=== PATIENT | male | born 1960 | race African-American/Black ===

== ENCOUNTER 2017-09-27 11:23 | Inpatient (IN) | payer MEDICARE ==
[2017-09-27 12:10] LABS: #Basophils 0.1 thou/uL (0.0-0.2); #Eosinphils 0.1 thou/uL (0.0-0.7); #Lymphocytes 2.7 thou/uL (1.20-3.40); #Monocytes 0.4 thou/uL (0.11-0.59); #Neutrophils 2.4 thou/uL (1.40-6.50); %Basophils 1.5 % (0.0-1.0); %Eosinophils 2.2 % (0.0-10.0); %Lymphocytes 47.7 % (21.0-51.0); %Monocytes 7.7 % (0.0-10.0); Hematocrit 54.6 % (42.0-52.0); Mean Platelet Volume 7.8 fL (7.4-10.4); Red Blood Cell (RBC) Count 5.42 mill/uL (4.70-6.10); White Blood Cell (WBC) Count 5.8 thou/uL (4.8-10.8)
[2017-09-27 12:27] LABS: ALT (SGPT) 44 U/L (8-55); AST (SGOT) 32 U/L (5-34); Alkaline Phosphatase 62 U/L (40-150); Anion Gap 15 mmol/L (10-20); BUN (Urea Nitrogen) 10 mg/dL (8.4-25.7); Bilirubin, Total 0.7 mg/dL (0.2-1.2); Calc. Creatinine Clearance 0 mL/min (70-130); Carbon Dioxide 20 mmol/L (22-29); Chloride 102 mmol/L (98-107); Estimated GFR-MDRD 81; Globulin 4.5 g/dL (2.4-3.5); Protein, Total 8.8 g/dL (6.0-8.3)
[2017-09-27 12:47] LABS: Troponin I Less than 0.010 ng/mL (< 0.028)
[2017-09-27 12:50] LABS: PTT 28.8 SEC (22.9-36.1)
--- NOTE | 2017-09-27 13:01 | CT ---
CT OF THE BRAIN WITHOUT CONTRAST: Indication: Blurred vision and altered mental status. FINDINGS: There are hypodensities involving the parietal lobes bilaterally as well as the frontal lobes bilater ally. There is one large hypodense lesion involving the left frontal lobe with areas of central incre ased density which may reflect areas of petechial hemorrhage versus calcifications. No midline shift is noted. Septum pellucidum and third ventricle are midline. There are calcifications involving the i ntracranial carotids. IMPRESSION: Hypodensities involving bilateral frontal lobes and parietal regions may reflect watershed type infar cts. There is a mass like quality to the lesion within the left frontal lobe. Metastatic disease is n ot excluded. Recommend follow up MRI of the brain with and without contrast. Code T POS: [facility]
--- NOTE | 2017-09-27 13:33 | RAD ---
SINGLE VIEW OF THE CHEST: Comparison: None. History: Altered mental status, high blood glucose. FINDINGS: Single view of the chest shows a normal sized cardiomediastinal silhouette. There is no evidence of c onsolidation, mass, or pleural effusion. Degenerative changes are seen in the spine. IMPRESSION: No evidence of acute cardiopulmonary disease. POS: [facility]
--- NOTE | 2017-09-27 16:05 | HP ---
PRIMARY CARE PHYSICIAN: Manny Elizabeth D.O. REASON FOR ADMISSION: Acute stroke. HISTORY OF PRESENT ILLNESS: A 57-year-old -[place] male with a history of diabetes type 2, h ypertension, tobacco abuse disorder who presented to the emergency room with complaint of right arm w eakness and blurred vision. The patient reports that 2 days ago when he was returning from [employer] tore, he was not able to use his right hand and right upper extremity. He was feeling weak. He is l eft handed and he can use both right and left hand, but this time he was having a hard time opening c ar door with right hand. He was also feeling blurred vision. On that day, he was feeling heaviness on his right lower extremity, but he was able to walk without any fall or wobbly. Subsequently, he w as able to hold a cup of coffee with the right hand, but he was not able to do that as well. Somehow , he opened the car door with his left hand and he drove back to his home and by that time, his sympt oms completely resolved, but blurred vision was continued. The patient reports that even after that he was intermittently experiencing weakness on his right upper extremity, he was not able to use righ t upper extremity as he used to. He did not have any lower extremity problem. He did not have any s ensory symptoms. He did not have any facial asymmetry, speech problem, headache, palpitations, chest pain and dizziness, but he was having blurred vision. Patient is taking aspirin daily and he just quit smoking 2 days ago when he noticed these symptoms. He also has a history of alcohol abuse. Today in the emergency room, patient had CT brain and CT brain showed hypodensity involving bilateral frontal lobe and parietal region suspected for watershed type of infarct and there was also mass-lik e quality due do to that lesion within the left frontal lobe hence suspicious for metastatic disease. This patient reports that he had colon screening test with guaiac, which was normal per patient, bu t he never had any colonoscopy or any age appropriate cancer screening. REVIEW OF SYSTEMS: The following complete review of systems was negative, unless otherwise mentioned in the HPI or below: Constitutional: Weight loss or gain, ability to conduct usual activities. Skin: Rash, itching. Eyes: Double vision, pain. ENT/Mouth: Nose bleeding, neck stiffness, pain, tenderness. Cardiovascular: Palpitations, dyspnea on exertion, orthopnea. Respiratory: Shortness of breath, wheezing, cough, hemoptysis, fever or night sweats. Gastrointestinal: Poor appetite, abdominal pain, heartburn, nausea, vomiting, constipation, or diarr hea. Genitourinary: Urgency, frequency, dysuria, nocturia. Musculoskeletal: Pain, swelling. Neurologic/Psychiatric: Anxiety, depression. Allergy/Immunologic: Skin rash, bleeding tendency. Please see my HPI for pertinent positives and negatives. All other review of systems reviewed and ne gative except as mentioned in the HPI. ALLERGIES: No known drug allergies. CURRENT HOME MEDICATIONS: Lipitor 40 mg p.o. at bedtime, lisinopril 10 mg p.o. daily, glipizide with metformin 2.5/250 one tablet twice daily. PAST MEDICAL HISTORY: Diabetes type 2 on oral hypoglycemic agent, hypertension, chronic low back ya n, tobacco abuse disorder, alcohol abuse disorder, history of marijuana abuse. PAST SURGICAL HISTORY: Right leg fracture required open reduction internal fixation, history of live r biopsy. PAST PSYCHIATRIC HISTORY: Reviewed and negative. FAMILY HISTORY: Diabetes to his 2 sister. No strong family history of coronary artery disease, stro ke or cancer. SOCIAL HISTORY: Patient is currently on disability. He smokes about 1 pack per day, but he quit [employer] 2 days ago. He drinks almost 10 beers on a daily basis. He has a remote history of marijuana a buse, but he quit marijuana. EMERGENCY ROOM COURSE: Patient is given aspirin 324 mg. PHYSICAL EXAMINATION: VITAL SIGNS: On arrival, blood pressure 144/99, pulse 93, respiratory rate 16, temperature 97.8, sat uration 97% on room air, weight 88.4 kilograms. GENERAL: Patient is currently alert, oriented, no acute distress. HEAD: Normocephalic, atraumatic. EYES: Pupils round, reactive to light. Extraocular muscle intact. No nystagmus. Visual inspection is completely normal. ENT: Oropharynx within normal limits. Moist mucous membranes. No oral lesions. No pharyngeal eryt christian, no exudate. NECK: Supple, no JVD, no thyromegaly, no carotid bruit, no jugular venous distention. LUNGS: Clear to auscultation without any rhonchi or rales. CARDIAC: S1, S2 regular. No murmur, no gallop, no rub. ABDOMEN: Soft, bowel sounds present, nontender, nondistended. No organomegaly, no mass, no suprapub ic tenderness. BACK: Unremarkable, no CVA tenderness. EXTREMITIES: Upper extremity passive movements of all joints are normal. Lower extremity passive mo vements of joints are vision. No edema. Good peripheral pulsation. SKIN: No skin rash. HEMATOLOGICAL: No lymphadenopathy. NEUROLOGIC: Patient is alert and oriented x3. Cranial nerves II-XII intact. Motor 5/5 in all four limbs. Sensation bilaterally symmetrical. No cerebellar sign. Speech normal. Planter bilateral fl exor. Reflexes symmetrical. SIGNIFICANT LABS: EKG based on my review reveals normal sinus rhythm. CT brain based on my review, hypodensity in the bilateral frontal lobe and parietal lobe consistent w ith watershed type of infarct. There is mass like changes in left frontal lobe. CBC: WBC 5.8, hemoglobin 18.3, MCV 101.0, platelets 153. INR 1.0. BMP: Sodium 133, potassium 4.3, chloride 102, carbon dioxide 20, BUN 10, creatinine 1.13, glucose 81, calcium 10.0. LFT: AST 32, ALT 44, alkaline phosphatase 62, albumin 4.3. CK 131, CK-MB 1.3, troponin I less than 0.010. Chest x-ray based on my review, no acute cardiopulmonary process. ASSESSMENT AND PLAN/IMPRESSION: 1. Stroke-like symptoms. This patient has right upper extremity weakness, currently resolved. His CT brain is showing worrisome finding. He has hypodensities in bilateral frontal lobe and right vincent etal lobe as well as mass-like quality in left frontal lobe. It is unclear whether this is only wate rshed type of infarct embolism phenomena versus metastatic disease. This patient never had any age a ppropriate cancer screening testing done. At this point for further evaluation, we will do MRI of br ain with contrast. We will also do carotid ultrasound, echocardiography for further evaluation for s troke. We will check lipid profile, hemoglobin A1c, RPR, homocysteine as a part of stroke workup. W e will also check stool for guaiac to rule out any occult bleeding. We will check PSA for age approp riate cancer screening to rule out any metastasis. We will also consult Neurology for their expert o yonathan, we will do neuro check. 2. Diabetes type 2. We will continue glipizide and metformin 2.5/250 one tablet twice daily. Will check hemoglobin A1c tomorrow, diabetic diet will be given insulin as per sliding scale per protocol. 3. Hypertension. We will continue lisinopril 10 mg p.o. daily. 4. Dyslipidemia. We will check lipid profile tomorrow and continue Lipitor 40 mg p.o. at bedtime. 5. Tobacco abuse disorder. Smoking cessation counseling given. We will provide nicotine patch if n eeded. 6. Microcytic anemia. We will provide folic acid, vitamin B12 and thiamine while in hospital. We w ill watch for any alcohol withdrawal. 7. Alcohol abuse. Patient is given counseling to avoid alcohol abuse. 8. Deep venous thrombosis prophylaxis. Lovenox 40 mg subcu daily. 9. Gastrointestinal prophylaxis. Pepcid 20 mg p.o. b.i.d. 10. Code status: The patient is FULL CODE. Patient does not have any surrogate decision maker. Disposition plan based on clinical course. We are expecting patient's stay in hospital more than 2 m idnights. Plan of care discussed with the patient and family member at bedside in the emergency room .
[2017-09-27] MEDS ORDERED: Milk Of Magnesia 30 ML UDCUP PO PRN (17:40)
[2017-09-27] MEDS ORDERED: Diabetic Tussin 200 MG/10 ML UDCUP PO PRN (17:40)
[2017-09-27] MEDS ORDERED: Ondansetron ODT 4 MG TAB PO PRN (17:40)
[2017-09-27] MEDS ORDERED: Senokot 8.6 MG TAB PO PRN (17:40)
[2017-09-27] MEDS ORDERED: Nitroglycerin 0.4 MG TAB (25 Tab Bottle) SL PRN (17:40)
[2017-09-27] MEDS ORDERED: Artificial Tears 18 DROP/0.9 ML EA EYE PRN (17:40)
[2017-09-27] MEDS ORDERED: Lorazepam 1 MG TAB PO PRN (17:40)
[2017-09-27] MEDS ORDERED: Ondansetron HCl/PF 4 MG/2 ML Vial IVP PRN (17:40)
[2017-09-27] MEDS ORDERED: Acetaminophen 325 MG TAB PO PRN (17:40)
[2017-09-27] MEDS ORDERED: Sodium Chloride 0.65% Nasal 44 ML BOT EA NARE PRN (17:40)
[2017-09-27] MEDS ORDERED: Mag-Al 1200 mg/1200 mg/30 ML UDCUP PO PRN (17:40)
[2017-09-27] MEDS ORDERED: Loratadine 10 MG TAB PO PRN (17:40)
[2017-09-27] MEDS ORDERED: hydrALAZINE 20 MG/ML VIAL SLOW IVP PRN (17:40)
[2017-09-27] MEDS ORDERED: Dextrose 50% Abboject 50 ML SYRINGE SLOW IVP PRN (17:40)
[2017-09-27] MEDS ORDERED: Dextrose 5% in Water 1,000 ML IV PRN (17:40)
[2017-09-27] MEDS ORDERED: Loperamide HCl 2 MG CAP PO PRN (17:40)
[2017-09-27] MEDS ORDERED: HumaLOG 300 UNITS/3 ML VIAL SC PRN ×2 (17:40)
[2017-09-27] MEDS ORDERED: Chloraseptic Spray 180 ml Bottle PO PRN (17:40)
[2017-09-27] MEDS ORDERED: Zolpidem Tartrate 5 MG TAB PO PRN (17:40)
[2017-09-27] MEDS ORDERED: Eucerin (Mineral Oil/Petrolatum,White) 30 gm Jar TOP PRN (17:40)
[2017-09-27] MEDS ORDERED: HYDROcodone/Acetaminophen 5/325 mg Tablet PO PRN (17:40)
[2017-09-27] MEDS ORDERED: metFORMIN 500 MG TAB PO SCH (18:45)
[2017-09-27] MEDS ORDERED: glipiZIDE 5 MG TAB PO SCH (19:00)
[2017-09-27 19:48] VITALS: BMI 23.8
[2017-09-27] MEDS: Atorvastatin Calcium 40 MG TAB PO SCH (20:45)
[2017-09-27] MEDS: Famotidine 20 MG TAB PO SCH (20:46)
[2017-09-28 05:26] LABS: Hemoglobin A1c 5.6 % (4.0-6.0)
[2017-09-28 05:32] LABS: Anion Gap 12 mmol/L (10-20); BUN (Urea Nitrogen) 10 mg/dL (8.4-25.7); Calc. Creatinine Clearance 82 mL/min (70-130); Calcium 10.3 mg/dL (7.8-10.44); Carbon Dioxide 24 mmol/L (22-29); Chloride 105 mmol/L (98-107); Cholesterol 172 mg/dl (< 200 Desired); Estimated GFR-MDRD 79; LDL Cholesterol, Calculated 120 mg/dL
[2017-09-28 06:03] LABS: Hematocrit 52.5 % (42.0-52.0); Mean Platelet Volume 7.5 fL (7.4-10.4); Neutrophil 38 % (42-75); Red Blood Cell (RBC) Count 5.23 mill/uL (4.70-6.10); White Blood Cell (WBC) Count 4.4 thou/uL (4.8-10.8)
[2017-09-28] MEDS ORDERED: FLU VACC QS2017-18 36 mo. & older 0.5 ML SYRINGE IM ONE (09:00)
[2017-09-28] MEDS: Enoxaparin Sodium 40 MG/0.4 ML SYRINGE SC SCH (09:11)
[2017-09-28] MEDS: Aspirin 325 mg Enteric Coated Tablet PO SCH (09:12)
[2017-09-28] MEDS: Multivitamin W/ Minerals 1 TAB PO SCH (09:12)
[2017-09-28] MEDS: Lisinopril 10 MG TAB PO SCH (09:12)
[2017-09-28] MEDS: Cyanocobalamin (Vitamin B-12) 1,000 MCG TAB PO SCH (09:12)
[2017-09-28] MEDS: Folic Acid 1 MG TAB PO SCH (09:12)
[2017-09-28] MEDS: Famotidine 20 MG TAB PO SCH ×2 (09:14→20:54)
[2017-09-28] MEDS: glipiZIDE 5 MG TAB PO SCH ×2 (09:14→18:18)
[2017-09-28] MEDS: metFORMIN 500 MG TAB PO SCH ×2 (09:17→17:45)
[2017-09-28 09:44] LABS: Bilirubin Small (Negative); Blood, Urine Negative (Negative); Glucose, Urine (Dipstick) Negative (Negative); Ketone, Urine Trace mg/dL (Negative); Nitrite Negative (Negative); Protein, Urine (Dipstick) Negative (Neg-Trace)
[2017-09-28 09:50] LABS: Bacteria/HPF None Seen HPF (None Seen); Hyaline Casts/LPF 0-3 HYALINE CAST LPF (0-3 Hyaline); RBC/HPF 0-3 HPF (0-3); Squamous Epithelial None Seen HPF (0-3); WBC/HPF None Seen HPF (0-3)
--- NOTE | 2017-09-28 10:04 | PDOC.PN ---
- Subjective Encounter Start Date: 09/28/17 Encounter Start Time: 07:10 -: old records requested/rev Patient seen and examined. No new complaints. No overnight events - Objective Resuscitation Status: Resuscitation Status FULL:Full Resuscitation MAR Reviewed: Yes Vital Signs & Weight: Vital Signs (12 hours) Temp Pulse Resp BP BP BP Pulse Ox 09/28/17 09:12 138/92 H 09/28/17 08:00 99 F 77 18 138/92 H 99 09/28/17 03:19 97.7 F 68 18 144/90 H 98 09/27/17 23:21 98.4 F 80 18 149/101 H 98 09/27/17 22:06 97 Weight Weight 181 lb 12.8 oz Result Diagrams: 09/28/17 05:07 09/28/17 05:07 Additional Labs: Accuchecks 09/28/17 09/27/17 05:43 19:41 POC Glucose 117 H 97 EKG Reviewed by me: Yes (nsr) Phys Exam - Physical Examination Constitutional: NAD HEENT: PERRLA, moist MMs, sclera anicteric Neck: no JVD, supple Respiratory: no wheezing, no rales, no rhonchi Cardiovascular: RRR, no significant murmur, no rub Gastrointestinal: soft, non-tender, no distention, positive bowel sounds Musculoskeletal: no edema, pulses present Neurological: moves all 4 limbs Lymphatic: no nodes Psychiatric: normal affect, A&O x 3 Skin: no rash, normal turgor Dx/Plan (1) CVA (cerebral vascular accident) Code(s): I63.9 - CEREBRAL INFARCTION, UNSPECIFIED Status: Acute (2) Alcohol abuse Code(s): F10.10 - ALCOHOL ABUSE, UNCOMPLICATED Status: Chronic (3) Diabetes type 2, controlled Code(s): E11.9 - TYPE 2 DIABETES MELLITUS WITHOUT COMPLICATIONS Status: Chronic (4) Dyslipidemia Code(s): E78.5 - HYPERLIPIDEMIA, UNSPECIFIED Status: Chronic (5) Hypertension Code(s): I10 - ESSENTIAL (PRIMARY) HYPERTENSION Status: Chronic (6) Macrocytic anemia Code(s): D53.9 - NUTRITIONAL ANEMIA, UNSPECIFIED Status: Chronic (7) Tobacco abuse Code(s): Z72.0 - TOBACCO USE Status: Chronic - Plan cont current plan of care * all investigation carotid, US, echo, MRI pending * neurology consult pending * medication reviewed as below * symptomatic treatment * concern is ? mlg with mets. Review of Systems - Review of Systems ENT: negative: Ear Pain, Ear Discharge, Nose Pain, Nose Discharge, Nose Congestion, Mouth Pain, Mouth Swelling, Throat Pain, Throat Swelling, Other Respiratory: negative: Cough, Dry, Shortness of Breath, Hemoptysis, SOB with Excertion, Pleuritic Pain, Sputum, Wheezing Cardiovascular: negative: Chest Pain, Palpitations, Orthopnea, Paroxysmal Noc. Dyspnea, Edema, Light Headedness, Other Gastrointestinal: negative: Nausea, Vomiting, Abdominal Pain, Diarrhea, Constipation, Melena, Hematochezia, Other Genitourinary: negative: Dysuria, Frequency, Incontinence, Hematuria, Retention , Other Musculoskeletal: negative: Neck Pain, Shoulder Pain, Arm Pain, Back Pain, Hand Pain, Leg Pain, Foot Pain, Other Skin: negative: Rash, Lesions, [place], Bruising, Other - Medications/Allergies Allergies/Adverse Reactions: Allergies Allergy/AdvReac Type Severity Reaction Status Date / Time No Known Drug Allergies Allergy Verified 09/27/17 19:45 Medications: Current Medications Acetaminophen (Tylenol) 650 mg PO Q4H PRN PRN Reason: Headache/Fever or Pain Hydrocodone Bitart/Acetaminophen ([place] 5/325) 1 tab PO Q4H PRN PRN Reason: Moderate Pain (4-6) Al Hydroxide/Mg Hydroxide (Maalox) 30 ml PO Q6H PRN PRN Reason: Heartburn or Indigestion Artificial Tears (Tears Naturale) 0 drop EA EYE PRN PRN PRN Reason: Dry Eyes Aspirin (Ecotrin) 325 mg PO DAILY [facility] Last Admin: 09/28/17 09:12 Dose: 325 mg Atorvastatin Calcium (Lipitor) 40 mg PO HS [facility] Last Admin: 09/27/17 20:45 Dose: 40 mg Cyanocobalamin (Vitamin B-12) 1,000 mcg PO DAILY [facility] Last Admin: 09/28/17 09:12 Dose: 1,000 mcg Dextrose/Water (Dextrose 50%) 25 gm SLOW IVP PRN PRN PRN Reason: Hypoglycemia Enoxaparin Sodium (Lovenox) 40 mg SC 0900 [facility] Last Admin: 09/28/17 09:11 Dose: 40 mg Famotidine (Pepcid) 20 mg PO BID [facility] Last Admin: 09/28/17 09:14 Dose: 20 mg Folic Acid (Folvite) 1 mg PO DAILY [facility] Last Admin: 09/28/17 09:12 Dose: 1 mg Glipizide (Glucotrol) 2.5 mg PO BID-AC [facility] Last Admin: 09/28/17 09:14 Dose: 2.5 mg Glucagon (Glucagon) 1 mg IM PRN PRN PRN Reason: Hypoglycemia Guaifenesin (Robitussin Sf) 200 mg PO Q4H PRN PRN Reason: Cough Hydralazine HCl (Apresoline) 10 mg SLOW IVP Q4H PRN PRN Reason: Systolic BP > 180 Dextrose/Water (D5w) 1,000 mls @ 0 mls/hr IV .Q0M PRN; As Directed PRN Reason: Hypoglycemia Insulin Human Lispro (Humalog) 0 units SC .MODERATE SLIDING SC PRN PRN Reason: Moderate Correctional Scale Insulin Human Lispro (Humalog) 0 units SC .BEDTIME SLIDING SC PRN PRN Reason: Bedtime Correctional Scale Iron/Minerals/Multivitamins (Theragran M) 1 tab PO DAILY [facility] Last Admin: 09/28/17 09:12 Dose: 1 tab Lisinopril (Zestril) 10 mg PO DAILY [facility] Last Admin: 09/28/17 09:12 Dose: 10 mg Loperamide HCl (Imodium) 2 mg PO PRN PRN PRN Reason: Diarrhea/Loose Stools Loratadine (Claritin) 10 mg PO DAILYPRN PRN PRN Reason: Sinus Symptoms Lorazepam (Ativan) 1 mg PO Q4H PRN PRN Reason: Anxiety/Agitation Magnesium Hydroxide (Milk Of Magnesium) 30 ml PO DAILYPRN PRN PRN Reason: Constipation Metformin HCl (Glucophage) 250 mg PO BID-[facility] Last Admin: 09/28/17 09:17 Dose: 250 mg Mineral Oil/White Petrolatum (Eucerin Cream) 0 gm TOP BIDPRN PRN PRN Reason: Dry Skin Nitroglycerin (Nitrostat) 0.4 mg SL Q5MIN PRN PRN Reason: Chest Pain Ondansetron HCl (Zofran Odt) 4 mg PO Q6H PRN PRN Reason: Nausea/Vomiting Ondansetron HCl (Zofran) 4 mg IVP Q6H PRN PRN Reason: Nausea/Vomiting Phenol (Chloraseptic [place] 180 Ml Bot) 0 ml PO PRN PRN PRN Reason: Sore Throat Senna (Senokot) 2 tab PO HSPRN PRN PRN Reason: Constipation Sodium Chloride ([place] Nasal [place] 0.65%) 0 ml EA NARE QIDPRN PRN PRN Reason: Nasal Congestion Sodium Chloride (Flush - Normal Saline) 10 ml IVF Q12HR [facility] Last Admin: 09/28/17 09:14 Dose: 10 ml Sodium Chloride (Flush - Normal Saline) 10 ml IVF PRN PRN PRN Reason: Saline Flush Thiamine HCl (Thiamine) 100 mg PO DAILY [facility] Last Admin: 09/28/17 09:12 Dose: 100 mg Zolpidem Tartrate (Ambien) 5 mg PO HSPRN PRN PRN Reason: Insomnia
[2017-09-28 10:05] LABS: Amphetamine Not Detected (NotDetected); Methadone Not Detected (NotDetected); Methamphetamine Not Detected (NotDetected)
--- NOTE | 2017-09-28 11:37 | ULT ---
CAROTID DOPPLER: HISTORY: CVA. TECHNIQUE: Ultrasound Doppler study is performed on the extracranial carotid arteries with color Doppler, spectr al analysis, and velocity recordings obtained. FINDINGS: Ultrasound images show diffuse echogenic plaque in both bulb and proximal ICAs. No increased velocit ies are recorded in either internal carotid artery. However, the right ICA is not well seen in its m id and distal portions. Flow is not demonstrated in this region. There is diffuse intimal thickenin g also noted. IMPRESSION: Prominent echogenic plaque throughout both systems. The mid right internal carotid artery is inadequ ately evaluated and flow cannot be confirmed. Recommend further evaluation with CT angio of neck. POS: [facility]
--- NOTE | 2017-09-28 13:00 | MRI ---
MRI BRAIN WITH AND WITHOUT CONTRAST: CLINICAL HISTORY: Altered mental status. TIA. FINDINGS: There is multifocal restricted diffusion involving the anterior centrum semiovale bilaterally, as wel l as the left temporoparietal occipital lobe. These findings are in a watershed distribution. There is no intracranial hemorrhage. No mass effect or midline shift. The ventricular system is within n ormal limits in size. Post contrast imaging reveals stippled areas of intraaxial enhancement localizing to sites of recent infarction described above. Skull base flow voids are patent. There is minimal mucosal thickening o f the paranasal sinuses. Trace left mastoid fluid is present. IMPRESSION: Areas of recent infarction involving the watershed distributions bilaterally with associated patholog ic enhancement. POS: [facility]
[2017-09-28] MEDS ORDERED: ISOVUE-370 76%-LOCM 1 ML ONE (14:05)
--- NOTE | 2017-09-28 19:57 | CON ---
DATE OF CONSULTATION: 09/28/2017 CONSULTING PHYSICIAN: Hospitalist service. IMPRESSION: 1. Ischemic stroke resulting in some mild right-sided weakness. 2. Hypertension. 3. Potential carotid stenosis. PLAN: 1. CTA of the carotids. 2. Restart aspirin. 3. Continue his statin. 4. The patient will be discharged home tomorrow if his carotid exam is unremarkable. HISTORY OF PRESENT ILLNESS: Mr. Perry is a 57-year-old -[place] man with past history of hy pertension. He was in the parking lot trying to open the car door when he noticed his right arm was weak. He was able to get himself into the car and noticed that he could not turn the haque to start th e engine, this seemingly only lasted about 10 minutes. He has not had any similar symptoms like this in the past. He denies feeling lightheaded or faint around the onset of the symptoms. His CT scan of the brain did not reveal any acute hemorrhage. MRI of the brain revealed what appeared to be a wa tershed area of ischemia. His carotid Doppler showed a significant amount of plaque and the level of stenosis could not be determined. Laboratory studies including CBC, coags, chemistries were all un remarkable. Toxicology was positive for cannabis. He has a past history of smoking. MEDICATIONS: Listed per chart. ALLERGIES: None reported. SOCIAL HISTORY: Some alcohol use as well. He is . FAMILY HISTORY: Noncontributory. REVIEW OF SYSTEMS: No chest pain, shortness breath, palpitations, headache, nausea, vomiting, vertig o. PHYSICAL EXAMINATION: VITAL SIGNS: Blood pressure 143/99, pulse 82, respirations 18, temperature 98.7. HEENT: Pupils equal and reactive. Conjunctivae clear. Oropharynx is clear. NECK: Supple, no lymphadenopathy. EXTREMITIES: No cyanosis, clubbing, or edema. NEUROLOGIC: He is alert and cooperative. Speech is fluent and clear. Cranial nerves II through XII are intact. Motor exam showed diminished hand supervisor capacitor processing on the right. Cerebellar testing showed diminis hed rapid alternating movements on the right. Sensation was intact to touch. He could walk independ ently. No abnormal movements were seen. SUMMARY: This is a 57-year-old man who presents with right-sided weakness and oddly a watershed dot on of ischemia. It is possible he may have hypoperfused secondary to a high-grade stenosis on the ri ght. CTA would be appropriate. Cardiovascular Surgery consultation could be obtained if there is ev idence of significant stenosis. Otherwise, I will have him take aspirin on a daily basis and discont inue smoking.
[2017-09-28 20:10] LABS: Syphilis Titer Non-Reactive (Negative)
[2017-09-28] MEDS: Atorvastatin Calcium 40 MG TAB PO SCH (20:53)
--- NOTE | 2017-09-28 21:14 | CT ---
CONTRAST ENHANCED CTA NECK 09/28/17 HISTORY: History of infarction. Contrast enhanced CTA of the neck is performed. 2D and 3D reconstructed images performed on an [employer] 3D workstation. The aortic arch is unremarkable. The right brachiocephalic artery is unremarkable. The right and left common carotid arteries demonstrate no significant evidence of stenosis or occlusi on. There is complete occlusion of the origin of the right internal carotid artery. No flow is seen in th e right internal carotid artery. Normal flow is seen in the left internal carotid artery. Mild but no t significant flow limiting lesions seen in the origin of the left ICA approximately 10-15%. Normal flow is seen in the right and left middle cerebral arteries, anterior cerebral artery and post erior cerebral arteries. There appears to be cross filling of the right middle cerebral artery via th e anterior communicating artery and the right posterior communicating artery. IMPRESSION: Complete occlusion of the right internal carotid artery. Some atherosclerotic plaque also seen in the intracranial portion of the distal right vertebral artery extending from its entry intracranially al l the way to its joining the contralateral vertebral artery to form the basilar artery. POS: [facility]
[2017-09-29] MEDS: Lisinopril 10 MG TAB PO SCH (08:26)
[2017-09-29] MEDS: glipiZIDE 5 MG TAB PO SCH ×2 (08:26→09:10)
[2017-09-29] MEDS: metFORMIN 500 MG TAB PO SCH ×2 (08:26→09:10)
[2017-09-29] MEDS: Folic Acid 1 MG TAB PO SCH (08:26)
[2017-09-29] MEDS: Famotidine 20 MG TAB PO SCH (08:27)
[2017-09-29] MEDS: Aspirin 325 mg Enteric Coated Tablet PO SCH (08:28)
[2017-09-29] MEDS: Cyanocobalamin (Vitamin B-12) 1,000 MCG TAB PO SCH (08:28)
[2017-09-29] MEDS: Multivitamin W/ Minerals 1 TAB PO SCH (08:28)
--- NOTE | 2017-09-29 08:44 | CON ---
DATE OF CONSULTATION: 09/29/2017 HISTORY OF PRESENT ILLNESS: Mr. Perry was admitted on 09/27/2017 with right-sided weakness and evid ence on CT scan of watershed infarct. This was followed with an MRI which again showed bilateral tati ershed infarct. His right arm weakness has improved since admission. Carotid ultrasound showed an occluded right carotid artery. This was followed with a CT angiogram th at again shows an occluded right internal carotid artery. The left is essentially without any signif icant stenosis. The patient has been placed on aspirin and statin, which I agree with. He has no in dication for surgical intervention at this time and should be followed longitudinally as an outpatien t. PAST MEDICAL HISTORY: 1. Type 2 diabetes mellitus. 2. Hypertension. 3. Tobacco abuse. 4. Alcohol abuse. 5. Marijuana abuse. PAST SURGICAL HISTORY: ORIF of the right leg. SOCIAL HISTORY: He is disabled. He has the above substance abuse history. MEDICATIONS AT HOME: 1. Lipitor 40 mg at bedtime. 2. Lisinopril 10 mg daily. 3. Glipizide/metformin 2.5/250 b.i.d. ALLERGIES: None. REVIEW OF SYSTEMS: Ten point review of systems performed and is negative except as above. PHYSICAL EXAMINATION: GENERAL: This is a well-developed and well-nourished gentleman without complaint. VITAL SIGNS: Temperature is 97.7, pulse is 81 and regular, blood pressure 142/100. NECK: Supple. He has bilateral carotid bruits. CHEST: Clear bilaterally. HEART: Rhythm is regular, without murmur. ABDOMEN: Soft and nontender. EXTREMITIES: No edema. ASSESSMENT AND PLAN: This is a pleasant 57-year-old gentleman status post bilateral watershed infarc ts. He should be followed longitudinally with carotid ultrasounds on a yearly basis and we will set this up as an outpatient.
[2017-09-29] MEDS: Enoxaparin Sodium 40 MG/0.4 ML SYRINGE SC SCH (09:10)
--- NOTE | 2017-09-29 09:57 | PDOC.PN ---
- Subjective Encounter Start Date: 09/29/17 Encounter Start Time: 07:20 Patient seen and examined. No new complaints. No overnight events - Objective Resuscitation Status: Resuscitation Status FULL:Full Resuscitation MAR Reviewed: Yes Vital Signs & Weight: Vital Signs (12 hours) Temp Pulse Resp BP Pulse Ox 09/29/17 07:18 97.7 F 81 16 142/100 H 99 09/29/17 03:16 98.6 F 77 14 125/86 98 09/28/17 23:22 98.0 F 63 16 137/85 98 Weight Weight 181 lb 12.8 oz I&O: 09/28/17 09/29/17 09/30/17 06:59 06:59 06:59 Intake Total 830 Balance 830 Result Diagrams: 09/28/17 05:07 09/28/17 05:07 Additional Labs: Accuchecks 09/29/17 09/28/17 09/28/17 05:26 20:53 16:33 POC Glucose 100 76 85 09/28/17 11:32 POC Glucose 98 Radiology Reviewed by me: Yes (MRI, echo and carotid US , CT angiography) EKG Reviewed by me: Yes (NSR) Phys Exam - Physical Examination Constitutional: NAD HEENT: PERRLA, moist MMs, sclera anicteric Neck: no JVD, supple Respiratory: no wheezing, no rales, no rhonchi Cardiovascular: RRR, no significant murmur, no rub Gastrointestinal: soft, non-tender, no distention, positive bowel sounds Musculoskeletal: no edema, pulses present Neurological: non-focal, normal sensation, moves all 4 limbs Lymphatic: no nodes Psychiatric: normal affect, A&O x 3 Skin: no rash, normal turgor Dx/Plan (1) CVA (cerebral vascular accident) Code(s): I63.9 - CEREBRAL INFARCTION, UNSPECIFIED Status: Acute (2) Alcohol abuse Code(s): F10.10 - ALCOHOL ABUSE, UNCOMPLICATED Status: Chronic (3) Diabetes type 2, controlled Code(s): E11.9 - TYPE 2 DIABETES MELLITUS WITHOUT COMPLICATIONS Status: Chronic (4) Dyslipidemia Code(s): E78.5 - HYPERLIPIDEMIA, UNSPECIFIED Status: Chronic (5) Hypertension Code(s): I10 - ESSENTIAL (PRIMARY) HYPERTENSION Status: Chronic (6) Macrocytic anemia Code(s): D53.9 - NUTRITIONAL ANEMIA, UNSPECIFIED Status: Chronic (7) Tobacco abuse Code(s): Z72.0 - TOBACCO USE Status: Chronic (8) ICAO (internal carotid artery occlusion) Code(s): I65.29 - OCCLUSION AND STENOSIS OF UNSPECIFIED CAROTID ARTERY Status : Acute Qualifiers: Laterality: right Qualified Code(s): I65.21 - Occlusion and stenosis of right carotid artery - Plan cont current plan of care * as per CT surgeon outpt follow up * continue optimum medical therapy as below * medication reviewed as below * symptomatic treatment * see discharge rashad. Review of Systems - Review of Systems ENT: negative: Ear Pain, Ear Discharge, Nose Pain, Nose Discharge, Nose Congestion, Mouth Pain, Mouth Swelling, Throat Pain, Throat Swelling, Other Respiratory: negative: Cough, Dry, Shortness of Breath, Hemoptysis, SOB with Excertion, Pleuritic Pain, Sputum, Wheezing Cardiovascular: negative: Chest Pain, Palpitations, Orthopnea, Paroxysmal Noc. Dyspnea, Edema, Light Headedness, Other Gastrointestinal: negative: Nausea, Vomiting, Abdominal Pain, Diarrhea, Constipation, Melena, Hematochezia, Other Genitourinary: negative: Dysuria, Frequency, Incontinence, Hematuria, Retention , Other Musculoskeletal: negative: Neck Pain, Shoulder Pain, Arm Pain, Back Pain, Hand Pain, Leg Pain, Foot Pain, Other - Medications/Allergies Allergies/Adverse Reactions: Allergies Allergy/AdvReac Type Severity Reaction Status Date / Time No Known Drug Allergies Allergy Verified 09/27/17 19:45 Medications: Current Medications Acetaminophen (Tylenol) 650 mg PO Q4H PRN PRN Reason: Headache/Fever or Pain Hydrocodone Bitart/Acetaminophen ([place] 5/325) 1 tab PO Q4H PRN PRN Reason: Moderate Pain (4-6) Al Hydroxide/Mg Hydroxide (Maalox) 30 ml PO Q6H PRN PRN Reason: Heartburn or Indigestion Artificial Tears (Tears Naturale) 0 drop EA EYE PRN PRN PRN Reason: Dry Eyes Aspirin (Ecotrin) 325 mg PO DAILY [facility] Last Admin: 09/29/17 08:28 Dose: 325 mg Atorvastatin Calcium (Lipitor) 40 mg PO HS [facility] Last Admin: 09/28/17 20:53 Dose: 40 mg Cyanocobalamin (Vitamin B-12) 1,000 mcg PO DAILY [facility] Last Admin: 09/29/17 08:28 Dose: 1,000 mcg Dextrose/Water (Dextrose 50%) 25 gm SLOW IVP PRN PRN PRN Reason: Hypoglycemia Enoxaparin Sodium (Lovenox) 40 mg SC 0900 [facility] Last Admin: 09/29/17 09:10 Dose: 40 mg Famotidine (Pepcid) 20 mg PO BID [facility] Last Admin: 09/29/17 08:27 Dose: 20 mg Folic Acid (Folvite) 1 mg PO DAILY [facility] Last Admin: 09/29/17 08:26 Dose: 1 mg Glipizide (Glucotrol) 2.5 mg PO BID-AC [facility] Last Admin: 09/29/17 09:10 Dose: 2.5 mg Glucagon (Glucagon) 1 mg IM PRN PRN PRN Reason: Hypoglycemia Guaifenesin (Robitussin Sf) 200 mg PO Q4H PRN PRN Reason: Cough Hydralazine HCl (Apresoline) 10 mg SLOW IVP Q4H PRN PRN Reason: Systolic BP > 180 Dextrose/Water (D5w) 1,000 mls @ 0 mls/hr IV .Q0M PRN; As Directed PRN Reason: Hypoglycemia Insulin Human Lispro (Humalog) 0 units SC .MODERATE SLIDING SC PRN PRN Reason: Moderate Correctional Scale Insulin Human Lispro (Humalog) 0 units SC .BEDTIME SLIDING SC PRN PRN Reason: Bedtime Correctional Scale Iron/Minerals/Multivitamins (Theragran M) 1 tab PO DAILY [facility] Last Admin: 09/29/17 08:28 Dose: 1 tab Lisinopril (Zestril) 10 mg PO DAILY [facility] Last Admin: 09/29/17 08:26 Dose: 10 mg Loperamide HCl (Imodium) 2 mg PO PRN PRN PRN Reason: Diarrhea/Loose Stools Loratadine (Claritin) 10 mg PO DAILYPRN PRN PRN Reason: Sinus Symptoms Lorazepam (Ativan) 1 mg PO Q4H PRN PRN Reason: Anxiety/Agitation Magnesium Hydroxide (Milk Of Magnesium) 30 ml PO DAILYPRN PRN PRN Reason: Constipation Metformin HCl (Glucophage) 250 mg PO BID-[facility] Last Admin: 09/29/17 09:10 Dose: 250 mg Mineral Oil/White Petrolatum (Eucerin Cream) 0 gm TOP BIDPRN PRN PRN Reason: Dry Skin Nitroglycerin (Nitrostat) 0.4 mg SL Q5MIN PRN PRN Reason: Chest Pain Ondansetron HCl (Zofran Odt) 4 mg PO Q6H PRN PRN Reason: Nausea/Vomiting Ondansetron HCl (Zofran) 4 mg IVP Q6H PRN PRN Reason: Nausea/Vomiting Phenol (Chloraseptic [place] 180 Ml Bot) 0 ml PO PRN PRN PRN Reason: Sore Throat Senna (Senokot) 2 tab PO HSPRN PRN PRN Reason: Constipation Sodium Chloride ([place] Nasal [place] 0.65%) 0 ml EA NARE QIDPRN PRN PRN Reason: Nasal Congestion Sodium Chloride (Flush - Normal Saline) 10 ml IVF Q12HR [facility] Last Admin: 09/29/17 08:28 Dose: 10 ml Sodium Chloride (Flush - Normal Saline) 10 ml IVF PRN PRN PRN Reason: Saline Flush Thiamine HCl (Thiamine) 100 mg PO DAILY [facility] Last Admin: 09/29/17 08:27 Dose: 100 mg Zolpidem Tartrate (Ambien) 5 mg PO HSPRN PRN PRN Reason: Insomnia
--- NOTE | 2017-09-29 11:20 | DIS ---
PRIMARY CARE PHYSICIAN: Dr. Manny Elizabeth. DATE OF ADMISSION: 09/27/2017 DATE OF DISCHARGE: 09/29/2017 DISCHARGE DISPOSITION: Home. PRIMARY DISCHARGE DIAGNOSES: 1. Acute watershed infarct. 2. Right internal carotid artery occlusion. SECONDARY DISCHARGE DIAGNOSES: Tobacco abuse disorder, macrocytic anemia, alcohol abuse, hypertensio n, and dyslipidemia. PRIMARY PROCEDURE/OPERATION: None. RADIOLOGICAL INVESTIGATION: CT brain on admission showed bilateral hypodensity consistent with water shed infarct. Echocardiography showed normal EF. MRI brain showed area of recent infarction involvi ng watershed distribution bilaterally. Carotid Doppler showed right internal carotid lesion. CT ang iography confirmed right internal carotid artery occlusion. SIGNIFICANT LABORATORY DATA: WBC 4.4, hemoglobin 17.7, MCV 100, platelet 152. INR 1.0. Sodium 137, potassium 3.8, BUN 10, creatinine 1.16, glucose 101, hemoglobin A1c 5.6, calcium 10.3. Cardiac enzy mes negative. CK 131, LDL 120. TSH 2.50, homocysteine normal. Stool for guaiac negative. DISCHARGE MEDICATIONS: Aspirin 325 mg p.o. daily, Lipitor 40 mg p.o. at bedtime, vitamin B12 at 1000 mcg p.o. daily, Pepcid 20 mg p.o. b.i.d., folic acid 1 mg p.o. daily, glipizide with metformin 2.5/5 00 one tablet twice daily, lisinopril 10 mg p.o. daily, multivitamin 1 tablet p.o. daily, and thiamin e 100 mg p.o. daily. CONTRAINDICATIONS: None. CODE STATUS: FULL CODE. INPATIENT CONSULTANTS: Dr. Neema Hunter, neurologist was consulted while in hospital. Dr. Tim minaya was consulted for internal carotid artery occlusion and he recommended outpatient followup. TEST RESULTS PENDING ON DISCHARGE: None. ALLERGIES: No known drug allergy. DISCHARGE PLAN: Post hospital, the patient will follow up with Dr. Manny Elizabeth in 1 week. The patien t will follow up with Dr. Tim Phelps as well as Dr. Neema Hunter as instructed. HOSPITAL COURSE: A 57-year-old -[place] male with above mentioned medical problem, who was a dmitted by me on 09/27/2017. Before coming to the hospital a couple of days ago, he was experiencing weakness in the right upper extremity and he was having difficulty performing fine motor movement. He initially ignored, but couple of days later, he came to the emergency room. In the emergency room , he had CT brain, which showed hypodensity in the frontal lobe as well as parietal lobe on both side s in watershed distribution. Initially, there was concern of metastasis as well, but most likely we suspected stroke. We kept him on stroke floor. We did neuro check. We did a stroke workup while in hospital. Echocardiography was normal. Carotid Doppler suspected carotid stenosis and that is why we did a CT angiography that confirmed right internal carotid artery occlusion and for that reason, diana talamantes consulted Dr. Tim Phelps and he recommended outpatient follow up for further evaluation. Regarding stroke, Dr. Dale Bethea was consulted and he recommended to continue above-mentioned medic ation therapy. This patient weakness on the right upper extremity completely normal. He is ambulato ry. He is tolerating p.o. well. His speech is normal. He is medically stable for discharge. I pro vided patient counseling to avoid tobacco, alcohol abuse as well as marijuana abuse. The patient is seen and examined at bedside today. Please see my progress note for further details. Overall, the patient is medically stable for discharge today and all consultants cleared him for to discharge as well. Total time spent on discharge day 31 minutes.
[2017-09-29 11:34] VITALS: BP 150/100; TEMP 98.4
== END 2017-09-29 11:55 | disposition home or self-care (01) | DRG 66 ==
LOC: ERS 11:23 → ERHOLD 15:05 → 2SE 19:12
PROVIDERS: ADMIT Internal Medicine; ATTEND Internal Medicine
DX: I63.231 Cerebral infarction due to unspecified occlusion or stenosis of right carotid arteries (principal); I10 Essential (primary) hypertension; E11.9 Type 2 diabetes mellitus without complications; E78.5 Hyperlipidemia, unspecified; D53.9 Nutritional anemia, unspecified; G83.21 Monoplegia of upper limb affecting right dominant side; Z79.82 Long term (current) use of aspirin; F17.210 Nicotine dependence, cigarettes, uncomplicated; Z79.84 Long term (current) use of oral hypoglycemic drugs; F10.10 Alcohol abuse, uncomplicated
CPT/HCPCS: 36415; 36416; 70450; 70498; 70553; 71010; 80048; 80053; 80061; 80306; 81001; 82274; 82550; 82553; 83036; 83090; 84153; 84484; 85025; 85610; 85730; 86593; 86780; 90471; 90682; 90732; 93005; 93306; 93880; 94760; A4216; G0008; G0009; G8978-GP-CK; G8979-GP-CK; G8980-GP-CK; G8987-GO-CI; G8988-GO-CI; G8989-GO-CI; J1610; J1650; Q2036

== ENCOUNTER 2018-08-31 14:16 | Outpatient (CLI) | payer MEDICARE ==
--- NOTE | 2018-08-31 20:30 | ULT ---
CAROTID ARTERIAL DOPPLER ULTRASOUND: 08/31/2018 HISTORY: Evaluate for carotid artery stenosis. History of stroke. TECHNIQUE: Multiplanar burgos-scale sonographic imaging of the arterial structures of the neck are obtained with c olor-flow and spectral analysis. FINDINGS: Antegrade blood flow and normal arterial wave-forms are seen within the common carotid artery. There is antegrade blood flow within a patent left vertebral artery. There is mild atherosclerotic plaque along the posterior aspect of the right common carotid artery. The right internal carotid artery is occluded at its origin, as seen on a CT angiogram of the neck, performed on 09/28/2017. The right external carotid artery is patent. The left common carotid artery, external carotid artery, and internal carotid artery are patent. VESSEL PSV (CM PER SECOND) EDV (CM PER SECOND) RIGHT CCA 94 6 RIGHT ICA OCCLUDED RIGHT ECA 55 9 LEFT CCA 108 42 LEFT ICA 82 32 LEFT ECA 63 17 IMPRESSION: 1. Occlusion of the right internal carotid artery at its origin. 2. No evidence for hemodynamically significant stenosis involving the left carotid system. 3. Right vertebral artery nonvisualized, suggesting possible right-sided vertebral artery occlusion. The right vertebral artery was patent on the 09/28/2017 examination and, thus, this may represent n ew right vertebral artery occlusion. Repeat CT angiogram advised. CODE T POS: [facility]
== END 2018-08-31 14:17 | disposition home or self-care (01) ==
LOC: BICULT 14:16
PROVIDERS: ATTEND Family Medicine
DX: I63.9 Cerebral infarction, unspecified (principal); I65.21 Occlusion and stenosis of right carotid artery
CPT/HCPCS: 93880

== ENCOUNTER 2018-09-11 07:50 | Outpatient (CLI) | payer MEDICARE ==
--- NOTE | 2018-09-11 10:36 | CT ---
CT OF CHEST WITHOUT CONTRAST UTILIZING LUNG CANCER SCREENING CT PROTOCOL: Date: 09/11/18 INDICATION: Low dose screening with nicotine dependence, coughing and wheezing; 30+ pack year smoking history, qu it 2 months ago. COMPARISON: Prior exam dated 05/19/17. FINDINGS: There are scattered areas of central lobular emphysema. There are patchy areas of air space retention seen predominantly within the lower lobe which can be seen with a peripheral bronchitis. No consolid ation is evident. No suspicious pulmonary nodule is demonstrated. There are coronary artery calcifica tions. There is mild bilateral male gynecomastia. Adrenal glands are normal appearing. No acute osseo us abnormality is evident. IMPRESSION: 1. Lung-RADS Category 1 - Negative. Recommend annual low dose CT lung cancer screening evaluation. 2. Areas of patchy peripheral air trapping seen within the lungs, predominantly in the lower lobes, which can be seen with a mild bronchiolitis. POS: [facility]
== END 2018-09-11 07:51 | disposition home or self-care (01) ==
LOC: CT 07:50
PROVIDERS: ATTEND Family Medicine
DX: Z12.2 Encounter for screening for malignant neoplasm of respiratory organs (principal); F17.210 Nicotine dependence, cigarettes, uncomplicated; R91.8 Other nonspecific abnormal finding of lung field
CPT/HCPCS: G0297

== ENCOUNTER 2018-09-18 12:20 | Outpatient (CLI) | payer MEDICARE ==
[2018-09-18] MEDS ORDERED: Iopamidol 370 76% 100 ML VIAL ONE (13:40)
--- NOTE | 2018-09-18 14:08 | CT ---
CTA CAROTID ARTERIES AND INTRACRANIAL CTA: History: Stroke. Technique: Contrast enhanced CTA of the carotid arteries and intracranial CTA performed. 2D and 3D re constructed images performed on an independent 3D work station. FINDINGS: The aortic arch is unremarkable. The right brachiocephalic artery is unremarkable. Soft tissue neck CT demonstrates no definite masses or lesions. The right common carotid artery is patent in the proximal portions. There is atherosclerotic plaque i n the distal aspect of the right CCA with complete occlusion of the right ICA from its origin. The ex ternal right carotid artery has flow within it. LEFT CAROTID: The left common carotid artery in the proximal mid portion is unremarkable. There is atherosclerotic plaque in the distal left CCA extending into the proximal left ICA. The left ICA is patent. The left vertebral artery is patent from its origin all the way through the basilar artery. The right vertebral artery is diminutive and has an adverent course in the proximal right cervical re gion. It does not pass in its normal course along the transverse foramen until the C4 level. From the C4 level distally there is a small a vertebral artery which ends in right pica. The vertebral artery on the left side intracranially is patent. Posterior cerebral arteries bilaterally are patent. Good flow is seen in the JOSIAS and MCA vessels bilaterally. Bilateral old areas of stroke seen in the parietal lobes. Some old areas of stroke also seen in the p osterior left frontal lobe. IMPRESSION: Completely occluded right ICA. 2. Small right vertebral artery which has an adverent course until the C4 level where it has a normal course in the transverse foramen. POS: [facility]
== END 2018-09-18 12:21 | disposition home or self-care (01) ==
LOC: CT 12:20
PROVIDERS: ATTEND Family Medicine
DX: I65.21 Occlusion and stenosis of right carotid artery (principal); I65.01 Occlusion and stenosis of right vertebral artery; I63.89 Other cerebral infarction
CPT/HCPCS: 70496; 70498

== ENCOUNTER 2019-08-08 12:59 | Emergency (ER) | payer MEDICARE ==
[2019-08-08] MEDS ORDERED: Ketorolac Tromethamine 30 MG/ML VIAL ONE (13:20)
--- NOTE | 2019-08-08 13:41 | RAD ---
RIGHT LEG TWO VIEWS: CLINICAL HISTORY: Pain. COMPARISON: 06/12/2012 FINDINGS: Redemonstration of chronic osseous deformities of the tibia diffusely as well as the proximal fibula. These findings do indicate sequela from remote trauma. No acute fracture. IMPRESSION: Stable chronic osseous deformities of the right leg. Transcribed Date/Time: 08/08/2019 1:43 PM
== END 2019-08-08 14:25 | disposition home or self-care (01) ==
LOC: ERS 12:59
DX: M79.661 Pain in right lower leg (principal); E11.9 Type 2 diabetes mellitus without complications; E78.00 Pure hypercholesterolemia, unspecified; I10 Essential (primary) hypertension; F17.200 Nicotine dependence, unspecified, uncomplicated; Z79.899 Other long term (current) drug therapy; Z79.84 Long term (current) use of oral hypoglycemic drugs
CPT/HCPCS: 96372; J1885

== ENCOUNTER 2019-10-23 09:17 | Outpatient (CLI) | payer MEDICARE ==
--- NOTE | 2019-10-23 11:19 | CT ---
CT PULMONARY LUNG SCAN FOR LUNG CANCER SCREENING. INDICATIONS: History of nicotine dependence; smoker for approximately 40 years; now smoking one-half pack per day or less. No current problems of shortness of breath or cough. COMPARISON: Prior CT pulmonary lung scan dated 09/11/2018. FINDINGS: Scattered centrilobular emphysema is stable. Patchy areas of peripheral air trapping. Mosaic appearan ce of the lung parenchyma is stable, within the lower lobes. No suspicious pulmonary nodule is eviden t. There are coronary artery and thoracic aortic calcifications. No pathologically enlarged lymph nod es are noted. The visualized upper abdomen reveals no acute abnormality. No acute osseous abnormality is demonstrated. IMPRESSION: 1. Lung-RADS category 1 - negative. Recommend annual low dose CT with lung cancer screening evaluatio n. 2. Category S - coronary artery and thoracic aortic calcifications with stable mild to moderate centr ilobular emphysema. POS: [facility]
== END 2019-10-23 09:18 | disposition home or self-care (01) ==
LOC: CT 09:17
PROVIDERS: ATTEND Family Medicine
DX: Z12.2 Encounter for screening for malignant neoplasm of respiratory organs (principal); F17.210 Nicotine dependence, cigarettes, uncomplicated; I25.10 Atherosclerotic heart disease of native coronary artery without angina pectoris; I70.0 Atherosclerosis of aorta; J43.2 Centrilobular emphysema
CPT/HCPCS: G0297

== ENCOUNTER 2019-12-31 07:01 | Outpatient (CLI) | payer MEDICARE ==
--- NOTE | 2019-12-31 07:30 | ULT ---
Sonogram abdomen complete HISTORY: Hepatitis. FINDINGS: Gallbladder has a normal appearance without evidence of stone. Common duct is 0.4 cm. Liver unremarkable without focal mass or intrahepatic biliary dilatation. No free fluid. The spleen, kidneys, and visualized portions of abdominal aorta, IVC, and pancreas are unremarkable. IMPRESSION: Normal exam.
== END 2019-12-31 07:02 | disposition home or self-care (01) ==
LOC: BICULT 07:01
PROVIDERS: ATTEND Internal Medicine
DX: B18.2 Chronic viral hepatitis C (principal); R94.5 Abnormal results of liver function studies
CPT/HCPCS: 93975

== ENCOUNTER 2020-08-03 09:11 | Outpatient (CLI) | payer MEDICARE ==
--- NOTE | 2020-08-03 10:36 | ULT ---
Ultrasound of theabdomen: 08/03/2020 COMPARISON:12/31/2019 HISTORY:Hepatitis C TECHNIQUE: Multiplanar grayscale sonographic imaging of theabdomen FINDINGS:The pancreas appears grossly unremarkable, partially obscured by bowel gas. There is mild in creased echogenicity of the hepatic parenchyma suggesting hepatocellular disease. No focal liver lesion or intrahepatic biliary dilatation is noted. No gallbladder wall thickening or pericholecystic fluid. No gallstones are noted. Common bile duct measures 2 mm, within normal limits. The left kidney measures 10.3 cm in craniocaudal dimension. Spleen measures 9.4 cm, within normal gallardo its. Right kidney measures 10.5 cm in craniocaudal dimension. No renal mass, hydronephrosis, or renal stone noted on either side. Imaged aorta and IVC appear within normal limits. IMPRESSION:No acute findings.
== END 2020-08-03 09:12 | disposition home or self-care (01) ==
LOC: BICULT 09:11
PROVIDERS: ATTEND Internal Medicine
DX: B18.2 Chronic viral hepatitis C (principal)
CPT/HCPCS: 93975

== ENCOUNTER 2020-11-26 09:18 | Outpatient (CLI) | payer MEDICARE | END 2020-11-26 09:19 | disposition home or self-care (01) | LOC: BICCT 09:18 | PROVIDERS: ATTEND Family Medicine | DX: Z12.2 Encounter for screening for malignant neoplasm of respiratory organs (principal); F17.210 Nicotine dependence, cigarettes, uncomplicated; I25.10 Atherosclerotic heart disease of native coronary artery without angina pectoris | CPT/HCPCS: 71271 ==

== ENCOUNTER 2020-12-20 09:52 | Inpatient (IN) | payer MEDICARE ==
[2020-12-20 10:41] LABS: #Basophils 0.1 thou/uL (0.0-0.2); #Eosinphils 0.3 thou/uL (0.0-0.7); #Lymphocytes 3.1 thou/uL (1.20-3.40); #Monocytes 0.5 thou/uL (0.11-0.59); #Neutrophils 4.9 thou/uL (1.40-6.50); %Basophils 1.1 % (0.0-1.0); %Eosinophils 3.6 % (0.0-10.0); %Lymphocytes 34.6 % (21.0-51.0); %Monocytes 5.6 % (0.0-10.0); Hemoglobin 14.1 g/dL (14.0-18.0); Mean Corpuscular HGB CONC 35.5 g/dL (32.0-36.0); Mean Corpuscular Hemoglobin 35.3 pg (27.0-31.0); Mean Corpuscular Volume 99.2 fL (78.0-98.0); Mean Platelet Volume 7.2 fL (7.4-10.4); Platelet Count 256 thou/uL (130-400); RBC Distribution Width 10.8 % (11.5-14.5); White Blood Cell (WBC) Count 8.9 thou/uL (4.8-10.8)
[2020-12-20 11:45] LABS: Albumin 3.3 g/dL (3.5-5.0)
[2020-12-20 11:46] LABS: Chloride 100 mmol/L (98-107); Sodium 134 mmol/L (136-145)
[2020-12-20 11:47] LABS: Calcium 9.4 mg/dL (7.8-10.44); Glucose 230 mg/dL (70-105)
[2020-12-20 11:48] LABS: Globulin 5.3 g/dL (2.4-3.5); Protein, Total 8.6 g/dL (6.0-8.3)
[2020-12-20 11:49] LABS: Anion Gap 20 mmol/L (10-20); Bilirubin, Total 0.3 mg/dL (0.2-1.2); Carbon Dioxide 19 mmol/L (22-29)
[2020-12-20 11:50] LABS: Alkaline Phosphatase 75 U/L (40-110)
[2020-12-20 11:51] LABS: BUN (Urea Nitrogen) 10 mg/dL (8.4-25.7); Calc. Creatinine Clearance 0 mL/min (70-130)
[2020-12-20 11:52] LABS: AST (SGOT) 37 U/L (5-34)
[2020-12-20 11:53] LABS: ALT (SGPT) 30 U/L (8-55)
[2020-12-20] MEDS ORDERED: Cefepime 2 GM VIAL ONE (12:36)
[2020-12-20] MEDS ORDERED: Ondansetron PF 4 MG/2 ML Vial IVP PRN (12:45)
[2020-12-20] MEDS ORDERED: Acetaminophen 325 MG TAB PO PRN (12:45)
[2020-12-20] MEDS ORDERED: Ondansetron ODT 4 MG TAB SL PRN (12:45)
[2020-12-20] MEDS ORDERED: Vancomycin 1 GM/200 ML BAG ONE (12:51)
[2020-12-20 13:34] LABS: Lactic Acid 2.4 mmol/L (0.5-2.2)
[2020-12-20] MEDS ORDERED: Metoprolol Tartrate 5 MG/5 ML VIAL IVP PRN (15:04)
[2020-12-20] MEDS ORDERED: HumaLOG 300 UNITS/3 ML VIAL SC PRN (15:06)
[2020-12-20] MEDS ORDERED: Dextrose 50% Abboject 50 ML SYRINGE SLOW IVP PRN (15:06)
[2020-12-20] MEDS ORDERED: Dextrose 5% in Water 1,000 ML IV PRN (15:06)
[2020-12-20 15:42] VITALS: BMI 23.7
[2020-12-20] MEDS: Sodium Chloride 0.9% 1,000 ML IV SCH (15:52)
[2020-12-20] MEDS ORDERED: FLU VACC QS2020-21(6MOS UP)/PF 60 MCG/0.5 ML SYRINGE IM ONE (16:00)
[2020-12-20] MEDS: HYDROcodone/Acetaminophen 5/325 mg Tablet PO PRN (20:00)
[2020-12-20] MEDS: Cefepime 2 GM in Sodium Chloride 0.9% 100 ML IVPB SCH (20:48)
[2020-12-20] MEDS: Famotidine 20 MG TAB PO SCH (20:58)
[2020-12-20] MEDS ORDERED: Vancomycin 1 GM in Premix Bag 1 BAG IVPB SCH (21:00)
[2020-12-20] MEDS ORDERED: Cefepime 2 GM in Sodium Chloride 0.9% 100 ML IVPB SCH (21:00)
[2020-12-21] MEDS: Vancomycin 1.5 GRAM/300 ML BAG 1.5 GM in Premix Bag 1 BAG IVPB SCH ×2 (03:02→14:42)
[2020-12-21] MEDS: Sodium Chloride 0.9% 1,000 ML IV SCH ×2 (03:03→16:55)
[2020-12-21 05:06] LABS: SARS-CoV-2 PCR by NAA Not Detected (NotDetected)
[2020-12-21 05:53] LABS: #Basophils 0.1 thou/uL (0.0-0.2); #Eosinphils 0.5 thou/uL (0.0-0.7); #Lymphocytes 3.2 thou/uL (1.20-3.40); #Monocytes 0.9 thou/uL (0.11-0.59); %Eosinophils 5.6 % (0.0-10.0); %Lymphocytes 32.9 % (21.0-51.0); %Monocytes 8.9 % (0.0-10.0); %Neutrophils 51.7 % (42.0-75.0); Hemoglobin 12.5 g/dL (14.0-18.0); Mean Corpuscular HGB CONC 33.8 g/dL (32.0-36.0); Mean Corpuscular Hemoglobin 33.7 pg (27.0-31.0); Mean Corpuscular Volume 99.7 fL (78.0-98.0); Platelet Count 243 thou/uL (130-400); RBC Distribution Width 10.8 % (11.5-14.5); White Blood Cell (WBC) Count 9.6 thou/uL (4.8-10.8)
[2020-12-21 06:22] LABS: Anion Gap 13 mmol/L (10-20); BUN (Urea Nitrogen) 6 mg/dL (8.4-25.7); Calc. Creatinine Clearance 118 mL/min (70-130); Calcium 8.7 mg/dL (7.8-10.44); Carbon Dioxide 23 mmol/L (22-29); Chloride 106 mmol/L (98-107); Glucose 122 mg/dL (70-105); Potassium 4.9 mmol/L (3.5-5.1); Sodium 137 mmol/L (136-145)
[2020-12-21] MEDS: Famotidine 20 MG TAB PO SCH ×2 (08:41→21:17)
[2020-12-21] MEDS: Aspirin 325 mg Enteric Coated Tablet PO SCH (08:41)
[2020-12-21] MEDS: Cefepime 2 GM in Sodium Chloride 0.9% 100 ML IVPB SCH (08:41)
[2020-12-21] MEDS: Enoxaparin Sodium 40 MG/0.4 ML SYRINGE SC SCH (08:41)
[2020-12-21] MEDS: Thiamine 100 MG TAB PO SCH (08:42)
[2020-12-21] MEDS: Multivitamin W/ Minerals 1 TAB PO SCH (08:42)
[2020-12-21] MEDS: Folic Acid 1 MG TAB PO SCH (08:42)
[2020-12-21] MEDS: Atorvastatin Calcium 40 MG TAB PO SCH (08:42)
[2020-12-21] MEDS: Cyanocobalamin (Vitamin B-12) 1,000 MCG TAB PO SCH (08:42)
[2020-12-21] MEDS ORDERED: Magnevist 469MG/ML 20 ML VIAL ONE (11:20)
[2020-12-21 16:00] LABS: HIV (1/2) Antibody/Antigen Non-Reactive (NonReactive); HIV 1/2 INDEX 0.19 S/CO (<1.00)
[2020-12-21 16:02] LABS: Hep C IgG Ab Reflex HepC Qnt (NonReactive); Hep C Index 6.11 S/CO (0-0.79)
[2020-12-21 16:05] LABS: Syphilis Antibody Index 18.59 S/CO (<1.00 Non-Reactive)
[2020-12-21 19:22] LABS: Syphilis Antibody INDETERMINATE (Nonreactive)
[2020-12-22] MEDS: Sodium Chloride 0.9% 1,000 ML IV SCH ×2 (05:55→23:17)
[2020-12-22] MEDS: Enoxaparin Sodium 40 MG/0.4 ML SYRINGE SC SCH (08:10)
[2020-12-22] MEDS: Folic Acid 1 MG TAB PO SCH ×2 (08:12→20:01)
[2020-12-22] MEDS: Lisinopril 10 MG TAB PO SCH (08:12)
[2020-12-22] MEDS: Aspirin 325 mg Enteric Coated Tablet PO SCH (08:12)
[2020-12-22] MEDS: Cyanocobalamin (Vitamin B-12) 1,000 MCG TAB PO SCH (08:13)
[2020-12-22] MEDS: Atorvastatin Calcium 40 MG TAB PO SCH (08:13)
[2020-12-22] MEDS: Multivitamin W/ Minerals 1 TAB PO SCH (08:13)
[2020-12-22] MEDS: Thiamine 100 MG TAB PO SCH (08:13)
[2020-12-22] MEDS: Famotidine 20 MG TAB PO SCH ×2 (08:13→20:01)
[2020-12-22] MEDS ORDERED: Lidocaine 1% PF 5 ML VIAL ONE (09:15)
[2020-12-22] MEDS ORDERED: PROPOFOL 200 MG/20 ML VIAL ONE (09:15)
[2020-12-22] MEDS ORDERED: Ondansetron PF 4 MG/2 ML Vial ONE (09:15)
[2020-12-22] MEDS ORDERED: Fentanyl 100 MCG/2 ML VIAL ONE ×3 (12:20→13:47)
[2020-12-22] MEDS ORDERED: Piperacillin/Tazobactam 3.375 GM VIAL ONE (12:50)
[2020-12-22] MEDS ORDERED: HYDROmorphone 2 MG/ML VIAL ONE (12:55)
[2020-12-22] MEDS ORDERED: HYDROmorphone 2 MG/ML VIAL SLOW IVP PRN (13:07)
[2020-12-22] MEDS ORDERED: Promethazine HCl 25 MG/ML VIAL IM PRN (13:07)
[2020-12-22] MEDS ORDERED: Promethazine HCl 25 MG/ML VIAL SLOW IVP PRN (13:07)
[2020-12-22] MEDS: HYDROcodone/Acetaminophen 5/325 mg Tablet PO PRN ×2 (17:03→23:15)
[2020-12-22] MEDS: Piperacillin/Tazobactam 3.375 GM in Sodium Chloride 0.9% 100 ML IVPB SCH ×2 (17:04→23:17)
[2020-12-22] MEDS: Multivit, Therapeutic 1 TAB PO SCH (20:01)
[2020-12-23] MEDS: Vancomycin 1 GM in Premix Bag 1 BAG IVPB SCH ×2 (00:42→12:28)
[2020-12-23] MEDS: Piperacillin/Tazobactam 3.375 GM in Sodium Chloride 0.9% 100 ML IVPB SCH ×4 (05:40→23:52)
[2020-12-23] MEDS: Famotidine 20 MG TAB PO SCH ×2 (09:32→20:39)
[2020-12-23] MEDS: Lisinopril 10 MG TAB PO SCH (09:34)
[2020-12-23] MEDS: Thiamine 100 MG TAB PO SCH (09:34)
[2020-12-23] MEDS: Cyanocobalamin (Vitamin B-12) 1,000 MCG TAB PO SCH (09:35)
[2020-12-23] MEDS: Atorvastatin Calcium 40 MG TAB PO SCH (09:35)
[2020-12-23] MEDS: Sodium Chloride 0.9% 1,000 ML IV SCH ×2 (09:40→20:52)
[2020-12-23] MEDS: Enoxaparin Sodium 40 MG/0.4 ML SYRINGE SC SCH (09:43)
[2020-12-23] MEDS: Aspirin 325 mg Enteric Coated Tablet PO SCH (09:43)
[2020-12-23] MEDS: Folic Acid 1 MG TAB PO SCH (20:39)
[2020-12-23] MEDS: Multivit, Therapeutic 1 TAB PO SCH (20:39)
[2020-12-23 23:35] LABS: Vancomycin, Trough 10.4 ug/mL
[2020-12-24] MEDS: VANCOMYCIN 1.25 GM/250 ML BAG 1.25 GM in Premix Bag 1 BAG IVPB SCH ×3 (00:53→17:04)
[2020-12-24] MEDS: Piperacillin/Tazobactam 3.375 GM in Sodium Chloride 0.9% 100 ML IVPB SCH ×2 (06:14→12:38)
[2020-12-24] MEDS: Enoxaparin Sodium 40 MG/0.4 ML SYRINGE SC SCH (09:06)
[2020-12-24] MEDS: Cyanocobalamin (Vitamin B-12) 1,000 MCG TAB PO SCH (09:06)
[2020-12-24] MEDS: Aspirin 325 mg Enteric Coated Tablet PO SCH (09:06)
[2020-12-24] MEDS: Famotidine 20 MG TAB PO SCH ×2 (09:06→19:44)
[2020-12-24] MEDS: Lisinopril 10 MG TAB PO SCH (09:07)
[2020-12-24] MEDS: Thiamine 100 MG TAB PO SCH (09:07)
[2020-12-24] MEDS: Atorvastatin Calcium 40 MG TAB PO SCH (09:07)
[2020-12-24] MEDS: Sodium Chloride 0.9% 1,000 ML IV SCH ×2 (13:02→23:00)
[2020-12-24] MEDS: Multivit, Therapeutic 1 TAB PO SCH (19:44)
[2020-12-24] MEDS: Folic Acid 1 MG TAB PO SCH (19:44)
[2020-12-24 20:12] LABS: Hep C PCR-Quant HCV Not Detected IU/mL (.)
[2020-12-25 00:15] LABS: Vancomycin, Trough 22.1 ug/mL
[2020-12-25] MEDS: Vancomycin 1 GM in Premix Bag 1 BAG IVPB SCH ×2 (03:55→12:27)
[2020-12-25] MEDS: Famotidine 20 MG TAB PO SCH (09:05)
[2020-12-25] MEDS: Lisinopril 10 MG TAB PO SCH (09:05)
[2020-12-25] MEDS: Enoxaparin Sodium 40 MG/0.4 ML SYRINGE SC SCH (09:05)
[2020-12-25] MEDS: Aspirin 325 mg Enteric Coated Tablet PO SCH (09:05)
[2020-12-25] MEDS: Cyanocobalamin (Vitamin B-12) 1,000 MCG TAB PO SCH (09:05)
[2020-12-25] MEDS: Thiamine 100 MG TAB PO SCH (09:05)
[2020-12-25] MEDS: Atorvastatin Calcium 40 MG TAB PO SCH (09:05)
[2020-12-25 10:16] LABS: Fungus Stain Final report (.)
[2020-12-25] MEDS: HYDROcodone/Acetaminophen 5/325 mg Tablet PO PRN (10:22)
[2020-12-25] MEDS ORDERED: Morphine 4 MG/ML VIAL SLOW IVP SCH (10:30)
[2020-12-25] MEDS ORDERED: Heparin 1,000 UNITS/ML VIAL ONE (10:45)
[2020-12-25 12:17] VITALS: BP 127/84; TEMP 97.4
== END 2020-12-25 15:03 | disposition home health service (06) | DRG 629 ==
LOC: ERS 09:52 → T4-B 12:59 → OBSVTOIN 12-21 12:54
PROVIDERS: ADMIT Internal Medicine; ATTEND Internal Medicine
PROC: 0QBG0ZX Excision of Right Tibia, Open Approach, Diagnostic (ICD-10-PCS; 2020-12-23)
PROC: 0Q9G0ZZ Drainage of Right Tibia, Open Approach (ICD-10-PCS; 2020-12-23)
PROC: 02HV33Z Insertion of Infusion Device into Superior Vena Cava, Percutaneous Approach (ICD-10-PCS; principal; 2020-12-24)
PROC: B5181ZA Fluoroscopy of Superior Vena Cava using Low Osmolar Contrast, Guidance (ICD-10-PCS; 2020-12-24)
PROC: B548ZZA Ultrasonography of Superior Vena Cava, Guidance (ICD-10-PCS; 2020-12-24)
DX: E11.69 Type 2 diabetes mellitus with other specified complication (principal); M86.661 Other chronic osteomyelitis, right tibia and fibula; L02.415 Cutaneous abscess of right lower limb; M86.18 Other acute osteomyelitis, other site; Z20.822 Contact with and (suspected) exposure to COVID-19; I10 Essential (primary) hypertension; E78.00 Pure hypercholesterolemia, unspecified; F17.210 Nicotine dependence, cigarettes, uncomplicated; B95.62 Methicillin resistant Staphylococcus aureus infection as the cause of diseases classified elsewhere; Z86.73 Personal history of transient ischemic attack (TIA), and cerebral infarction without residual deficits; Z79.84 Long term (current) use of oral hypoglycemic drugs; Z79.899 Other long term (current) drug therapy; Z87.01 Personal history of pneumonia (recurrent)
CPT/HCPCS: 36415; 36416; 36569; 80048; 80053; 80202; 83605; 85025; 85652; 86140; 86593; 86780; 86803; 87040; 87070; 87077; 87102; 87116; 87186; 87205; 87206; 87389; 87522; 87635; 88307; 88311; 96365; 96367; 96372; 96376; A9579; C1751; G0378; J0692; J1170; J1650; J2270; J2405; J2543; J2704; J3010; J3370; J3490; U0003; U0005

== ENCOUNTER 2021-07-19 09:17 | Outpatient (CLI) | payer MEDICARE | END 2021-07-19 09:18 | disposition home or self-care (01) | LOC: BICRAD 09:17 | PROVIDERS: ATTEND Internal Medicine Infectious Disease | DX: M86.661 Other chronic osteomyelitis, right tibia and fibula (principal) ==

== ENCOUNTER 2021-12-08 09:21 | Outpatient (CLI) | payer MEDICARE | END 2021-12-08 09:22 | disposition home or self-care (01) | LOC: BICCT 09:21 | PROVIDERS: ATTEND Family Medicine | DX: Z12.2 Encounter for screening for malignant neoplasm of respiratory organs (principal); F17.210 Nicotine dependence, cigarettes, uncomplicated | CPT/HCPCS: 71271 ==

== ENCOUNTER 2022-06-27 08:35 | Outpatient (CLI) | payer OTHER | END 2022-06-27 08:36 | disposition home or self-care (01) | LOC: BICRAD 08:35 | PROVIDERS: ATTEND Internal Medicine Infectious Disease | DX: M86.661 Other chronic osteomyelitis, right tibia and fibula (principal) ==

== ENCOUNTER 2022-12-21 09:47 | Inpatient (IN) | payer OTHER ==
[2022-12-21] MEDS ORDERED: Cefepime 2 GM VIAL ONE (10:58)
[2022-12-21] MEDS ORDERED: Vancomycin 1.5 GRAM/300 ML BAG 1.5 GM in Premix Bag 1 BAG IVPB SCH (11:00)
[2022-12-21 11:04] LABS: #Eosinphils 0.1 thou/uL (0.0-0.7); #Lymphocytes 2.4 thou/uL (1.20-3.40); #Monocytes 0.7 thou/uL (0.11-0.59); #Neutrophils 7.1 thou/uL (1.40-6.50); %Basophils 0.3 % (0.0-1.0); %Eosinophils 0.6 % (0.0-10.0); %Lymphocytes 23.5 % (21.0-51.0); %Monocytes 6.7 % (0.0-10.0); %Neutrophils 68.8 % (42.0-75.0); Hemoglobin 14.3 g/dL (14.0-18.0); Mean Corpuscular HGB CONC 32.8 g/dL (32.0-36.0); Mean Corpuscular Hemoglobin 32.1 pg (27.0-31.0); Mean Corpuscular Volume 97.8 fl (78.0-98.0); Platelet Count 342 10x3/uL (130-400); RBC Distribution Width 11.1 % (11.5-14.5); Red Blood Cell (RBC) Count 4.46 mill/uL (4.70-6.10); White Blood Cell (WBC) Count 10.2 10x3/uL (4.8-10.8)
[2022-12-21 11:06] LABS: Actual Bicarbonate (HCO3v) 20 mEq/L (22-28); Base Excess -6.4 mEq/L (-2.0 to +3.0); Calcium, Ionized (venous) 1.33 mmol/L (1.16-1.32); Chloride (VBG) 96 mmol/L (98-106); Hemoglobin (Hb) 15.7 g/dL (13.1-17.2); Potassium (VBG) 5.34 mmol/L (3.70-5.30); Sodium 135.4 mmol/L (133-146)
[2022-12-21 11:17] LABS: PTT 28.3 sec (22.9-36.1)
[2022-12-21 12:06] LABS: ALT (SGPT) 15 U/L (8-55); AST (SGOT) 15 U/L (5-34); Albumin 3.9 g/dL (3.4-4.8); Alkaline Phosphatase 108 U/L (40-110); Anion Gap 30 mmol/L (10-20); BUN (Urea Nitrogen) 17 mg/dL (8.4-25.7); Bilirubin, Total 0.4 mg/dL (0.2-1.2); Calc. Creatinine Clearance 0 mL/min (70-130); Calcium 10.8 mg/dL (7.8-10.44); Carbon Dioxide 15 mmol/L (23-31); Chloride 96 mmol/L (98-107); Estimated GFR 58; Globulin 4.8 g/dL (2.4-3.5); Glucose 233 mg/dL (80-115); Potassium 5.3 mmol/L (3.5-5.1); Protein, Total 8.7 g/dL (5.8-8.1); Sodium 134 mmol/L (136-145)
[2022-12-21 12:52] LABS: Hemoglobin A1c 11.5 % (4.0-6.0)
[2022-12-21] MEDS ORDERED: Electrolyte Replacement Protocol 1 EACH FS SCH (13:00)
[2022-12-21] MEDS ORDERED: Morphine 4 MG/ML VIAL ONE (13:02)
[2022-12-21] MEDS ORDERED: Ondansetron PF 4 MG/2 ML Vial ONE (13:02)
[2022-12-21] MEDS ORDERED: Dextrose 50% Abboject 50 ML SYRINGE SLOW IVP PRN (13:14)
[2022-12-21] MEDS ORDERED: Dextrose 5% in Water 1,000 ML IV PRN (13:14)
[2022-12-21 13:17] LABS: Bacteria/HPF 1+ HPF (None Seen); Bilirubin Negative (Negative); Blood, Urine Trace (Negative); Clarity Clear (Clear); Glucose, Urine (Dipstick) Greater than 1000 mg/dL (Negative); Ketone, Urine 60 mg/dL (Negative); Leukocyte 75 Leu/uL (Negative); Nitrite Negative (Negative); Protein, Urine (Dipstick) Negative (Neg-Trace); RBC/HPF 0-3 HPF (0-3); Specific Gravity, Urine 1.026 (1.002-1.036); Squamous Epithelial None Seen HPF (0-3); Urobilinogen Normal mg/dL (Less than 2)
[2022-12-21 14:06] LABS: Acetaminophen Less than 10.0 mcg/mL (10.0-30.0); Alcohol Less than 10 mg/dL (Less than 10); Magnesium 1.7 mg/dL (1.6-2.6); Phosphorus 2.7 mg/dL (2.3-4.7); Salicylate Less than 8.0 mg/dL (15.0-30.0)
[2022-12-21 14:23] LABS: Anion Gap 19 mmol/L (10-20); BUN (Urea Nitrogen) 16 mg/dL (8.4-25.7); Calc. Creatinine Clearance 0 mL/min (70-130); Calcium 8.9 mg/dL (7.8-10.44); Carbon Dioxide 16 mmol/L (23-31); Chloride 104 mmol/L (98-107); Estimated GFR 79; Glucose 197 mg/dL (80-115); Potassium 4.8 mmol/L (3.5-5.1); Sodium 134 mmol/L (136-145)
[2022-12-21 14:51] VITALS: BMI 21.7
[2022-12-21] MEDS: Sodium Chloride 0.9% 1,000 ML IV SCH (15:24)
[2022-12-21] MEDS: glipiZIDE 5 MG TAB PO SCH (17:28)
[2022-12-21] MEDS: HumaLOG 300 UNITS/3 ML VIAL SC PRN ×2 (17:59→21:57)
[2022-12-21] MEDS: Cefepime 1 GM in Sodium Chloride 0.9% 100 ML IVPB SCH (22:36)
[2022-12-21] MEDS ORDERED: Vancomycin 1 GM in Premix Bag 1 BAG IVPB SCH (23:59)
[2022-12-22] MEDS: VANCOMYCIN 1.25 GM/250 ML BAG 1.25 GM in Premix Bag 1 BAG IVPB SCH ×2 (00:29→13:20)
[2022-12-22] MEDS: Sodium Chloride 0.9% 1,000 ML IV SCH ×5 (00:29→21:18)
[2022-12-22] MEDS: HYDROcodone/Acetaminophen 5/325 mg Tablet PO PRN ×3 (01:56→23:21)
[2022-12-22] MEDS: HumaLOG 300 UNITS/3 ML VIAL SC PRN ×4 (06:10→21:27)
[2022-12-22 07:36] LABS: #Eosinphils 0.1 thou/uL (0.0-0.7); #Lymphocytes 2.1 thou/uL (1.20-3.40); #Monocytes 1.3 thou/uL (0.11-0.59); #Neutrophils 7.9 thou/uL (1.40-6.50); %Basophils 0.4 % (0.0-1.0); %Eosinophils 0.5 % (0.0-10.0); %Lymphocytes 18.7 % (21.0-51.0); %Monocytes 11.3 % (0.0-10.0); %Neutrophils 69.2 % (42.0-75.0); Hemoglobin 9.8 g/dL (14.0-18.0); Mean Corpuscular Hemoglobin 33.5 pg (27.0-31.0); Mean Corpuscular Volume 98.6 fl (78.0-98.0); Mean Platelet Volume 8.4 fL (7.4-10.4); Platelet Count 200 10x3/uL (130-400); RBC Distribution Width 11.1 % (11.5-14.5); Red Blood Cell (RBC) Count 2.92 mill/uL (4.70-6.10); White Blood Cell (WBC) Count 11.4 10x3/uL (4.8-10.8)
[2022-12-22] MEDS ORDERED: Magnesium 2 GM/50 ML(in water) 2 GM in Premix Bag 1 BAG IVPB SCH (08:00)
[2022-12-22 08:38] LABS: Anion Gap 20 mmol/L (10-20); BUN (Urea Nitrogen) 12 mg/dL (8.4-25.7); Calc. Creatinine Clearance 108 mL/min (70-130); Calcium 7.8 mg/dL (7.8-10.44); Carbon Dioxide 11 mmol/L (23-31); Chloride 107 mmol/L (98-107); Estimated GFR 101; Glucose 165 mg/dL (80-115); Magnesium 1.4 mg/dL (1.6-2.6); Phosphorus 1.9 mg/dL (2.3-4.7); Sodium 134 mmol/L (136-145)
[2022-12-22] MEDS: glipiZIDE 5 MG TAB PO SCH ×2 (09:04→17:11)
[2022-12-22] MEDS: PHOS-NAK 1 PKT PACK PO SCH ×2 (09:06→14:10)
[2022-12-22] MEDS: Cefepime 1 GM in Sodium Chloride 0.9% 100 ML IVPB SCH (11:51)
[2022-12-22] MEDS ORDERED: Vancomycin 1.5 GRAM/300 ML BAG 1.5 GM in Premix Bag 1 BAG IVPB SCH (12:00)
[2022-12-22] MEDS: Cefepime 2 GM in Sodium Chloride 0.9% 100 ML IVPB SCH (23:17)
[2022-12-22 23:37] LABS: Vancomycin, Trough 16.1 ug/mL
[2022-12-23] MEDS: VANCOMYCIN 1.25 GM/250 ML BAG 1.25 GM in Premix Bag 1 BAG IVPB SCH ×2 (00:22→12:03)
[2022-12-23] MEDS: Sodium Chloride 0.9% 1,000 ML IV SCH ×3 (04:45→13:50)
[2022-12-23] MEDS: HumaLOG 300 UNITS/3 ML VIAL SC PRN ×4 (06:45→21:00)
[2022-12-23 07:00] LABS: #Eosinphils 0.1 thou/uL (0.0-0.7); #Lymphocytes 1.7 thou/uL (1.20-3.40); #Monocytes 1.2 thou/uL (0.11-0.59); #Neutrophils 6.1 thou/uL (1.40-6.50); %Basophils 0.4 % (0.0-1.0); %Lymphocytes 18.9 % (21.0-51.0); %Monocytes 13.3 % (0.0-10.0); %Neutrophils 66.3 % (42.0-75.0); Hemoglobin 9.3 g/dL (14.0-18.0); Mean Corpuscular HGB CONC 33.6 g/dL (32.0-36.0); Mean Corpuscular Hemoglobin 33.2 pg (27.0-31.0); Mean Corpuscular Volume 98.7 fl (78.0-98.0); Mean Platelet Volume 7.7 fL (7.4-10.4); Platelet Count 186 10x3/uL (130-400); RBC Distribution Width 11.1 % (11.5-14.5); Red Blood Cell (RBC) Count 2.79 mill/uL (4.70-6.10); White Blood Cell (WBC) Count 9.1 10x3/uL (4.8-10.8)
[2022-12-23 07:26] LABS: Anion Gap 13 mmol/L (10-20); BUN (Urea Nitrogen) 12 mg/dL (8.4-25.7); Calc. Creatinine Clearance 88 mL/min (70-130); Calcium 8.5 mg/dL (7.8-10.44); Carbon Dioxide 19 mmol/L (23-31); Chloride 106 mmol/L (98-107); Estimated GFR 92; Glucose 240 mg/dL (80-115); Potassium 3.9 mmol/L (3.5-5.1); Sodium 134 mmol/L (136-145)
[2022-12-23] MEDS: glipiZIDE 5 MG TAB PO SCH ×2 (08:58→15:16)
[2022-12-23] MEDS: Cefepime 2 GM in Sodium Chloride 0.9% 100 ML IVPB SCH (10:42)
[2022-12-23] MEDS: HYDROcodone/Acetaminophen 5/325 mg Tablet PO PRN ×2 (12:03→20:50)
[2022-12-23] MEDS ORDERED: Meropenem 1 GM in Sodium Chloride 0.9% 100 ML IVPB SCH ×2 (13:00→14:00)
[2022-12-23] MEDS ORDERED: Insulin Glargine 30 UNITS/0.3 ML VIAL SC SCH (13:15)
[2022-12-23] MEDS: Meropenem 1 GM in Sodium Chloride 0.9% 100 ML IVPB SCH (20:50)
[2022-12-23] MEDS: Atorvastatin Calcium 40 MG TAB PO SCH (20:50)
[2022-12-23] MEDS: Insulin Glargine 30 UNITS/0.3 ML VIAL SC SCH (22:26)
[2022-12-24] MEDS: VANCOMYCIN 1.25 GM/250 ML BAG 1.25 GM in Premix Bag 1 BAG IVPB SCH ×2 (00:50→11:50)
[2022-12-24] MEDS: HumaLOG 300 UNITS/3 ML VIAL SC PRN ×2 (01:47→21:48)
[2022-12-24] MEDS: Sodium Chloride 0.9% 1,000 ML IV SCH ×2 (02:55→15:54)
[2022-12-24] MEDS: Meropenem 1 GM in Sodium Chloride 0.9% 100 ML IVPB SCH ×3 (05:33→21:39)
[2022-12-24] MEDS ORDERED: fentaNYL PF 100 MCG/2 ML SYRINGE ONE (07:48)
[2022-12-24] MEDS ORDERED: PROPOFOL 200 MG/20 ML VIAL ONE (08:07)
[2022-12-24] MEDS ORDERED: Lidocaine 1% PF 5 ML VIAL ONE (08:07)
[2022-12-24] MEDS ORDERED: Ondansetron PF 4 MG/2 ML Vial ONE (08:07)
[2022-12-24] MEDS ORDERED: FENTANYL 50 MCG/ML 1 ML VIAL ONE ×2 (09:00→09:06)
[2022-12-24] MEDS: Insulin Glargine 30 UNITS/0.3 ML VIAL SC SCH ×2 (09:41→21:48)
[2022-12-24] MEDS: Cyanocobalamin (Vitamin B-12) 1,000 MCG TAB PO SCH (09:41)
[2022-12-24] MEDS: Thiamine 100 MG TAB PO SCH (09:41)
[2022-12-24] MEDS: glipiZIDE 5 MG TAB PO SCH ×2 (09:41→16:49)
[2022-12-24] MEDS: Folic Acid 1 MG TAB PO SCH (09:41)
[2022-12-24 11:08] LABS: Vancomycin, Trough 14.7 ug/mL
[2022-12-24 12:01] LABS: #Eosinphils 0.1 thou/uL (0.0-0.7); #Lymphocytes 2.1 thou/uL (1.20-3.40); #Monocytes 0.9 thou/uL (0.11-0.59); #Neutrophils 4.3 thou/uL (1.40-6.50); %Basophils 0.6 % (0.0-1.0); %Eosinophils 1.5 % (0.0-10.0); %Lymphocytes 27.8 % (21.0-51.0); %Monocytes 12.2 % (0.0-10.0); Hemoglobin 9.2 g/dL (14.0-18.0); Mean Corpuscular HGB CONC 34.6 g/dL (32.0-36.0); Mean Corpuscular Hemoglobin 34.1 pg (27.0-31.0); Mean Corpuscular Volume 98.5 fl (78.0-98.0); Mean Platelet Volume 7.8 fL (7.4-10.4); Platelet Count 196 10x3/uL (130-400); RBC Distribution Width 11.2 % (11.5-14.5); Red Blood Cell (RBC) Count 2.69 mill/uL (4.70-6.10); White Blood Cell (WBC) Count 7.5 10x3/uL (4.8-10.8)
[2022-12-24 12:12] LABS: Phosphorus 2.1 mg/dL (2.3-4.7)
[2022-12-24 12:15] LABS: Anion Gap 11 mmol/L (10-20); BUN (Urea Nitrogen) 8 mg/dL (8.4-25.7); Calc. Creatinine Clearance 114 mL/min (70-130); Calcium 8.4 mg/dL (7.8-10.44); Carbon Dioxide 23 mmol/L (23-31); Chloride 109 mmol/L (98-107); Estimated GFR 103; Glucose 163 mg/dL (80-115); Magnesium 1.6 mg/dL (1.6-2.6); Potassium 3.8 mmol/L (3.5-5.1); Sodium 139 mmol/L (136-145)
[2022-12-24] MEDS ORDERED: Magnesium 2 GM/50 ML(in water) 2 GM in Premix Bag 1 BAG IVPB SCH (13:30)
[2022-12-24] MEDS: HYDROcodone/Acetaminophen 5/325 mg Tablet PO PRN (21:34)
[2022-12-24] MEDS: Atorvastatin Calcium 40 MG TAB PO SCH (21:35)
[2022-12-25] MEDS: VANCOMYCIN 1.25 GM/250 ML BAG 1.25 GM in Premix Bag 1 BAG IVPB SCH ×2 (00:47→11:51)
[2022-12-25] MEDS: HYDROcodone/Acetaminophen 5/325 mg Tablet PO PRN ×2 (04:26→20:05)
[2022-12-25] MEDS: Meropenem 1 GM in Sodium Chloride 0.9% 100 ML IVPB SCH ×3 (04:32→20:07)
[2022-12-25] MEDS: Sodium Chloride 0.9% 1,000 ML IV SCH (05:01)
[2022-12-25] MEDS: Thiamine 100 MG TAB PO SCH (08:06)
[2022-12-25] MEDS: Cyanocobalamin (Vitamin B-12) 1,000 MCG TAB PO SCH (08:06)
[2022-12-25] MEDS: Folic Acid 1 MG TAB PO SCH (08:06)
[2022-12-25] MEDS: glipiZIDE 5 MG TAB PO SCH ×2 (08:07→15:49)
[2022-12-25] MEDS: Insulin Glargine 30 UNITS/0.3 ML VIAL SC SCH ×2 (08:07→21:28)
[2022-12-25 08:18] LABS: Magnesium 1.9 mg/dL (1.6-2.6)
[2022-12-25] MEDS ORDERED: Magnesium 2 GM/50 ML(in water) 2 GM in Premix Bag 1 BAG IVPB SCH (09:00)
[2022-12-25] MEDS: HumaLOG 300 UNITS/3 ML VIAL SC PRN ×2 (11:54→21:28)
[2022-12-25] MEDS: Atorvastatin Calcium 40 MG TAB PO SCH (20:05)
[2022-12-25 23:45] LABS: Vancomycin, Trough 15.1 ug/mL
[2022-12-26] MEDS: HYDROcodone/Acetaminophen 5/325 mg Tablet PO PRN ×2 (01:01→08:45)
[2022-12-26] MEDS: HumaLOG 300 UNITS/3 ML VIAL SC PRN ×4 (01:02→20:13)
[2022-12-26] MEDS: VANCOMYCIN 1.25 GM/250 ML BAG 1.25 GM in Premix Bag 1 BAG IVPB SCH ×3 (01:02→23:30)
[2022-12-26] MEDS: Meropenem 1 GM in Sodium Chloride 0.9% 100 ML IVPB SCH ×3 (05:48→20:12)
[2022-12-26] MEDS ORDERED: Lactated Ringer's 1,000 ML IV SCH (08:00)
[2022-12-26 08:26] LABS: Anion Gap 13 mmol/L (10-20); BUN (Urea Nitrogen) 9 mg/dL (8.4-25.7); Calc. Creatinine Clearance 97 mL/min (70-130); Calcium 8.8 mg/dL (7.8-10.44); Carbon Dioxide 23 mmol/L (23-31); Chloride 105 mmol/L (98-107); Estimated GFR 98; Glucose 171 mg/dL (80-115); Magnesium 1.9 mg/dL (1.6-2.6); Potassium 4.4 mmol/L (3.5-5.1); Sodium 137 mmol/L (136-145)
[2022-12-26] MEDS: Insulin Glargine 30 UNITS/0.3 ML VIAL SC SCH ×2 (08:34→20:12)
[2022-12-26] MEDS: glipiZIDE 5 MG TAB PO SCH ×2 (08:36→16:53)
[2022-12-26] MEDS: Folic Acid 1 MG TAB PO SCH (08:36)
[2022-12-26] MEDS: Cyanocobalamin (Vitamin B-12) 1,000 MCG TAB PO SCH (08:36)
[2022-12-26] MEDS: Thiamine 100 MG TAB PO SCH (08:36)
[2022-12-26] MEDS ORDERED: Magnesium 2 GM/50 ML(in water) 2 GM in Premix Bag 1 BAG IVPB SCH (08:45)
[2022-12-26] MEDS ORDERED: Gabapentin 300 MG CAP PO SCH (09:30)
[2022-12-26] MEDS ORDERED: fentaNYL PF 100 MCG/2 ML SYRINGE ONE (11:19)
[2022-12-26] MEDS ORDERED: Sodium Chloride 0.45% 1,000 ML IV SCH (12:00)
[2022-12-26] MEDS ORDERED: Ondansetron PF 4 MG/2 ML Vial ONE (12:18)
[2022-12-26] MEDS ORDERED: ePHEDrine 50 MG/ML VIAL ONE (12:18)
[2022-12-26] MEDS ORDERED: PROPOFOL 200 MG/20 ML VIAL ONE (12:18)
[2022-12-26] MEDS ORDERED: PHENYLEPHRINE-NS 100 MCG/ML 10 ML SYRINGE ONE (12:18)
[2022-12-26] MEDS ORDERED: Promethazine HCl 25 MG/ML VIAL IM PRN (13:34)
[2022-12-26] MEDS ORDERED: Ondansetron HCl/PF 4 MG/2 ML Vial IVP PRN (13:34)
[2022-12-26] MEDS ORDERED: FENTANYL 50 MCG/ML 1 ML VIAL ONE ×2 (14:15→14:35)
[2022-12-26] MEDS ORDERED: Bupivacaine HCl 0.5%/Epinephrine 1:200,000/PF 30 ml Vial ONE (15:00)
[2022-12-26] MEDS: Gabapentin 300 MG CAP PO SCH ×2 (16:52→20:11)
[2022-12-26] MEDS ORDERED: Ketorolac Tromethamine 30 MG/ML VIAL IVP SCH (19:45)
[2022-12-26] MEDS: Atorvastatin Calcium 40 MG TAB PO SCH (20:11)
[2022-12-27] MEDS: HYDROcodone/Acetaminophen 7.5/325 mg Tablet PO PRN ×3 (01:56→17:05)
[2022-12-27] MEDS: Meropenem 1 GM in Sodium Chloride 0.9% 100 ML IVPB SCH ×3 (04:58→21:14)
[2022-12-27] MEDS: HumaLOG 300 UNITS/3 ML VIAL SC PRN ×5 (05:00→20:30)
[2022-12-27 08:57] LABS: #Eosinphils 0.2 thou/uL (0.0-0.7); #Monocytes 1.4 thou/uL (0.11-0.59); #Neutrophils 7.7 thou/uL (1.40-6.50); %Basophils 0.2 % (0.0-1.0); %Eosinophils 1.5 % (0.0-10.0); %Lymphocytes 24.4 % (21.0-51.0); %Monocytes 11.1 % (0.0-10.0); %Neutrophils 62.8 % (42.0-75.0); Hemoglobin 6.4 g/dL (14.0-18.0); Mean Corpuscular HGB CONC 33.7 g/dL (32.0-36.0); Mean Corpuscular Hemoglobin 33.3 pg (27.0-31.0); Mean Corpuscular Volume 98.8 fl (78.0-98.0); Mean Platelet Volume 7.4 fL (7.4-10.4); Platelet Count 222 10x3/uL (130-400); RBC Distribution Width 11.6 % (11.5-14.5); Red Blood Cell (RBC) Count 1.91 mill/uL (4.70-6.10); White Blood Cell (WBC) Count 12.3 10x3/uL (4.8-10.8)
[2022-12-27 09:19] LABS: Anion Gap 12 mmol/L (10-20); BUN (Urea Nitrogen) 12 mg/dL (8.4-25.7); Calc. Creatinine Clearance 94 mL/min (70-130); Calcium 8.2 mg/dL (7.8-10.44); Carbon Dioxide 24 mmol/L (23-31); Chloride 104 mmol/L (98-107); Estimated GFR 97; Glucose 247 mg/dL (80-115); Potassium 4.1 mmol/L (3.5-5.1); Sodium 136 mmol/L (136-145)
[2022-12-27] MEDS: Gabapentin 300 MG CAP PO SCH ×3 (09:35→20:01)
[2022-12-27] MEDS: Folic Acid 1 MG TAB PO SCH (09:35)
[2022-12-27] MEDS: glipiZIDE 5 MG TAB PO SCH ×2 (09:35→17:05)
[2022-12-27] MEDS: Thiamine 100 MG TAB PO SCH (09:35)
[2022-12-27] MEDS: Cyanocobalamin (Vitamin B-12) 1,000 MCG TAB PO SCH (09:36)
[2022-12-27] MEDS: Insulin Glargine 30 UNITS/0.3 ML VIAL SC SCH ×2 (09:37→20:02)
[2022-12-27] MEDS: Polyethylene Glycol 3350 17 GM Packet PO SCH (09:43)
[2022-12-27 11:55] LABS: Vancomycin, Trough 16.9 ug/mL
[2022-12-27] MEDS: Acetaminophen 325 MG/10.15 ML UDCUP PO PRN ×2 (12:43→23:12)
[2022-12-27] MEDS: VANCOMYCIN 1.25 GM/250 ML BAG 1.25 GM in Premix Bag 1 BAG IVPB SCH ×4 (12:55→22:01)
[2022-12-27] MEDS ORDERED: Sodium Chloride 0.9% 500 ML IV SCH (14:30)
[2022-12-27] MEDS ORDERED: Meropenem 1 GM in Sodium Chloride 0.9% 100 ML IVPB SCH (16:00)
[2022-12-27] MEDS ORDERED: Dextrose 5% in Water 1,000 ML IV PRN (16:12)
[2022-12-27] MEDS ORDERED: Dextrose 50% Abboject 50 ML SYRINGE SLOW IVP PRN (16:12)
[2022-12-27 17:44] LABS: Hemoglobin 5.8 g/dL (14.0-18.0); Platelet Count 215 10x3/uL (130-400)
[2022-12-27] MEDS ORDERED: Acetaminophen 325 MG TAB PO SCH (18:00)
[2022-12-27] MEDS ORDERED: diphenhydrAMINE 25 MG CAP PO SCH (18:00)
[2022-12-27 19:59] LABS: Bacteria/HPF None Seen HPF (None Seen); Bilirubin Negative (Negative); Blood, Urine 1+ (Negative); Clarity Clear (Clear); Glucose, Urine (Dipstick) Greater than 1000 mg/dL (Negative); Ketone, Urine Negative (Negative); Leukocyte Negative Leu/uL (Negative); Nitrite Negative (Negative); Protein, Urine (Dipstick) Negative (Neg-Trace); RBC/HPF 0-3 HPF (0-3); Specific Gravity, Urine 1.014 (1.002-1.036); Squamous Epithelial None Seen HPF (0-3); Urobilinogen Normal mg/dL (Less than 2); WBC/HPF 0-3 HPF (0-3); pH, Urine 6.5 (5.0-9.0)
[2022-12-27] MEDS: Atorvastatin Calcium 40 MG TAB PO SCH (20:02)
[2022-12-28] MEDS: HYDROcodone/Acetaminophen 7.5/325 mg Tablet PO PRN ×4 (01:51→22:04)
[2022-12-28] MEDS: Meropenem 1 GM in Sodium Chloride 0.9% 100 ML IVPB SCH (05:04)
[2022-12-28 06:07] LABS: Mean Corpuscular HGB CONC 33.3 g/dL (32.0-36.0); Mean Corpuscular Hemoglobin 31.7 pg (27.0-31.0); Mean Corpuscular Volume 95.3 fl (78.0-98.0); Mean Platelet Volume 7.3 fL (7.4-10.4); Platelet Count 214 10x3/uL (130-400); RBC Distribution Width 15.7 % (11.5-14.5); Red Blood Cell (RBC) Count 2.19 mill/uL (4.70-6.10); White Blood Cell (WBC) Count 13.2 10x3/uL (4.8-10.8)
[2022-12-28 06:24] LABS: Anion Gap 10 mmol/L (10-20); BUN (Urea Nitrogen) 10 mg/dL (8.4-25.7); Calc. Creatinine Clearance 114 mL/min (70-130); Calcium 8.3 mg/dL (7.8-10.44); Carbon Dioxide 26 mmol/L (23-31); Chloride 103 mmol/L (98-107); Estimated GFR 103; Glucose 131 mg/dL (80-115); Potassium 4.3 mmol/L (3.5-5.1); Sodium 135 mmol/L (136-145)
[2022-12-28 06:46] LABS: Anisocytosis SLIGHT = 6-15 cells (100X) (0-5/hpf); Eosinophils 7 % (0-10); Lymphocytes 28 % (21-51); MDiff Complete? YES; Monocytes 10 % (0-10); Neutrophil 55 % (42-75); Platelet Morphology Comment Appears Adequate; Polychromasia SLIGHT = 2-3 cells (100X) (0-2/hpf); Stomatocytes SLIGHT = 2-5 cells (100X) (0-1/hpf)
[2022-12-28] MEDS: Folic Acid 1 MG TAB PO SCH (08:27)
[2022-12-28] MEDS: Insulin Glargine 30 UNITS/0.3 ML VIAL SC SCH ×2 (08:27→22:28)
[2022-12-28] MEDS: Cyanocobalamin (Vitamin B-12) 1,000 MCG TAB PO SCH (08:27)
[2022-12-28] MEDS: Thiamine 100 MG TAB PO SCH (08:27)
[2022-12-28] MEDS: glipiZIDE 5 MG TAB PO SCH ×2 (08:27→16:36)
[2022-12-28] MEDS: Gabapentin 300 MG CAP PO SCH ×3 (08:27→22:04)
[2022-12-28] MEDS: Polyethylene Glycol 3350 17 GM Packet PO SCH (08:30)
[2022-12-28] MEDS ORDERED: Iron, Sodium Ferric Gluconate 125 MG in Sodium Chloride 0.9% 100 ML IVPB SCH (08:30)
[2022-12-28] MEDS: VANCOMYCIN 1.25 GM/250 ML BAG 1.25 GM in Premix Bag 1 BAG IVPB SCH (10:35)
[2022-12-28] MEDS: HumaLOG 300 UNITS/3 ML VIAL SC PRN ×3 (11:34→22:28)
[2022-12-28] MEDS ORDERED: Meropenem 1 GM in Sodium Chloride 0.9% 100 ML IVPB SCH ×2 (16:15→22:00)
[2022-12-28] MEDS: Atorvastatin Calcium 40 MG TAB PO SCH (22:05)
[2022-12-29] MEDS: Meropenem 1 GM in Sodium Chloride 0.9% 100 ML IVPB SCH ×3 (03:23→21:39)
[2022-12-29] MEDS: HYDROcodone/Acetaminophen 7.5/325 mg Tablet PO PRN ×4 (03:28→21:28)
[2022-12-29] MEDS: HumaLOG 300 UNITS/3 ML VIAL SC PRN ×4 (06:24→21:30)
[2022-12-29 07:59] LABS: #Eosinphils 0.4 thou/uL (0.0-0.7); #Lymphocytes 2.7 thou/uL (1.20-3.40); #Monocytes 1.2 thou/uL (0.11-0.59); #Neutrophils 6.8 thou/uL (1.40-6.50); %Basophils 0.3 % (0.0-1.0); %Eosinophils 3.3 % (0.0-10.0); %Lymphocytes 24.3 % (21.0-51.0); %Monocytes 11.1 % (0.0-10.0); Hemoglobin 6.6 g/dL (14.0-18.0); Mean Corpuscular Hemoglobin 32.5 pg (27.0-31.0); Mean Corpuscular Volume 95.8 fl (78.0-98.0); Mean Platelet Volume 6.9 fL (7.4-10.4); Platelet Count 255 10x3/uL (130-400); RBC Distribution Width 15.7 % (11.5-14.5); Red Blood Cell (RBC) Count 2.04 mill/uL (4.70-6.10); White Blood Cell (WBC) Count 11.1 10x3/uL (4.8-10.8)
[2022-12-29] MEDS: Gabapentin 300 MG CAP PO SCH ×3 (08:08→21:29)
[2022-12-29] MEDS: glipiZIDE 5 MG TAB PO SCH ×2 (08:08→17:10)
[2022-12-29] MEDS: Polyethylene Glycol 3350 17 GM Packet PO SCH ×2 (08:09→08:10)
[2022-12-29] MEDS: Folic Acid 1 MG TAB PO SCH (08:09)
[2022-12-29] MEDS: Thiamine 100 MG TAB PO SCH (08:09)
[2022-12-29] MEDS: Cyanocobalamin (Vitamin B-12) 1,000 MCG TAB PO SCH (08:09)
[2022-12-29] MEDS: Insulin Glargine 30 UNITS/0.3 ML VIAL SC SCH ×2 (08:09→21:29)
[2022-12-29 15:35] LABS: #Basophils 0.1 thou/uL (0.0-0.2); #Eosinphils 0.4 thou/uL (0.0-0.7); #Monocytes 1.5 thou/uL (0.11-0.59); #Neutrophils 7.6 thou/uL (1.40-6.50); %Basophils 0.4 % (0.0-1.0); %Eosinophils 3.2 % (0.0-10.0); %Lymphocytes 24.1 % (21.0-51.0); %Monocytes 11.6 % (0.0-10.0); %Neutrophils 60.7 % (42.0-75.0); Hemoglobin 7.4 g/dL (14.0-18.0); Mean Corpuscular HGB CONC 34.3 g/dL (32.0-36.0); Mean Corpuscular Hemoglobin 32.7 pg (27.0-31.0); Mean Corpuscular Volume 95.2 fl (78.0-98.0); Mean Platelet Volume 7.2 fL (7.4-10.4); Platelet Count 271 10x3/uL (130-400); RBC Distribution Width 15.6 % (11.5-14.5); Red Blood Cell (RBC) Count 2.28 mill/uL (4.70-6.10); White Blood Cell (WBC) Count 12.6 10x3/uL (4.8-10.8)
[2022-12-29] MEDS ORDERED: Iron, Sodium Ferric Gluconate 125 MG in Sodium Chloride 0.9% 100 ML IVPB SCH (16:30)
[2022-12-29] MEDS: Pantoprazole 40 MG VIAL IVP SCH (21:28)
[2022-12-29] MEDS: Atorvastatin Calcium 40 MG TAB PO SCH (21:29)
[2022-12-30] MEDS: Meropenem 1 GM in Sodium Chloride 0.9% 100 ML IVPB SCH ×2 (02:39→10:52)
[2022-12-30 06:55] LABS: #Eosinphils 0.4 thou/uL (0.0-0.7); #Lymphocytes 2.8 thou/uL (1.20-3.40); #Monocytes 1.2 thou/uL (0.11-0.59); #Neutrophils 7.5 thou/uL (1.40-6.50); %Basophils 0.3 % (0.0-1.0); %Eosinophils 3.3 % (0.0-10.0); %Lymphocytes 23.7 % (21.0-51.0); %Monocytes 9.7 % (0.0-10.0); Mean Corpuscular HGB CONC 33.8 g/dL (32.0-36.0); Mean Corpuscular Hemoglobin 32.5 pg (27.0-31.0); Mean Platelet Volume 7.3 fL (7.4-10.4); Platelet Count 290 10x3/uL (130-400); RBC Distribution Width 15.4 % (11.5-14.5); Red Blood Cell (RBC) Count 2.16 mill/uL (4.70-6.10); White Blood Cell (WBC) Count 11.8 10x3/uL (4.8-10.8)
[2022-12-30] MEDS: Polyethylene Glycol 3350 17 GM Packet PO SCH (07:59)
[2022-12-30] MEDS: glipiZIDE 5 MG TAB PO SCH (07:59)
[2022-12-30] MEDS: Cyanocobalamin (Vitamin B-12) 1,000 MCG TAB PO SCH (08:00)
[2022-12-30] MEDS: Gabapentin 300 MG CAP PO SCH (08:00)
[2022-12-30] MEDS: Pantoprazole 40 MG VIAL IVP SCH (08:01)
[2022-12-30] MEDS: Folic Acid 1 MG TAB PO SCH (08:01)
[2022-12-30] MEDS: Insulin Glargine 30 UNITS/0.3 ML VIAL SC SCH (08:01)
[2022-12-30] MEDS: Thiamine 100 MG TAB PO SCH (08:01)
[2022-12-30] MEDS: HYDROcodone/Acetaminophen 7.5/325 mg Tablet PO PRN (08:20)
[2022-12-30] MEDS: HumaLOG 300 UNITS/3 ML VIAL SC PRN (11:14)
[2022-12-30 14:04] VITALS: BP 112/59; TEMP 98.4
== END 2022-12-30 14:15 | DRG 474 ==
LOC: ERS 09:47 → T4-B 14:34 → OBSVTOIN 12-22 13:11
PROVIDERS: ADMIT Internal Medicine; ATTEND Internal Medicine
PROC: 3E03329 Introduction of Other Anti-infective into Peripheral Vein, Percutaneous Approach (ICD-10-PCS; 2022-12-22)
PROC: 0JDN0ZZ Extraction of Right Lower Leg Subcutaneous Tissue and Fascia, Open Approach (ICD-10-PCS; 2022-12-24)
PROC: 0JCN0ZZ Extirpation of Matter from Right Lower Leg Subcutaneous Tissue and Fascia, Open Approach (ICD-10-PCS; 2022-12-24)
PROC: 0Y6H0Z1 Detachment at Right Lower Leg, High, Open Approach (ICD-10-PCS; principal; 2022-12-26)
PROC: 30233N1 Transfusion of Nonautologous Red Blood Cells into Peripheral Vein, Percutaneous Approach (ICD-10-PCS; 2022-12-27)
DX: M86.631 Other chronic osteomyelitis, right radius and ulna (principal); A41.51 Sepsis due to Escherichia coli [E. coli]; E11.10 Type 2 diabetes mellitus with ketoacidosis without coma; L03.115 Cellulitis of right lower limb; Z16.12 Extended spectrum beta lactamase (ESBL) resistance; N30.00 Acute cystitis without hematuria; N17.9 Acute kidney failure, unspecified; L97.819 Non-pressure chronic ulcer of other part of right lower leg with unspecified severity; E11.52 Type 2 diabetes mellitus with diabetic peripheral angiopathy with gangrene; I96 Gangrene, not elsewhere classified; Z20.822 Contact with and (suspected) exposure to COVID-19; E78.5 Hyperlipidemia, unspecified; I10 Essential (primary) hypertension; E87.5 Hyperkalemia; M79.5 Residual foreign body in soft tissue; S82.291S Other fracture of shaft of right tibia, sequela; V49.9XXS Car occupant (driver) (passenger) injured in unspecified traffic accident, sequela; R50.84 Febrile nonhemolytic transfusion reaction; D50.0 Iron deficiency anemia secondary to blood loss (chronic); Z98.890 Other specified postprocedural states; Z87.891 Personal history of nicotine dependence; Z91.14 Patient's other noncompliance with medication regimen
CPT/HCPCS: 36415; 36416; 36430; 76770; 80048; 80053; 80202; 80307; 81001; 81003; 81015; 82010; 82274; 82805; 83036; 83605; 83735; 84100; 85025; 85610; 85730; 86850; 86900; 86901; 87040; 87070; 87076; 87077; 87086; 87149; 87186; 87205; 87811; 88307; 93005; 93923; 94760; 96365; 96366; 96367; 96374; 96375; 96376; 97139; C9113; G0378; J0692; J1650; J1815; J1885; J2185; J2270; J2405; J2704; J2916; J3010; J3370; J3475; J3490; J7030; J7050; J7120; P9016; U0003; U0005

== ENCOUNTER 2023-01-06 11:12 | Emergency (ER) | payer OTHER ==
[2023-01-06 12:32] LABS: #Basophils 0.1 thou/uL (0.0-0.2); #Eosinphils 0.6 thou/uL (0.0-0.7); #Monocytes 0.7 thou/uL (0.11-0.59); #Neutrophils 3.7 thou/uL (1.40-6.50); %Basophils 0.8 % (0.0-1.0); %Eosinophils 7.7 % (0.0-10.0); %Lymphocytes 36.5 % (21.0-51.0); %Neutrophils 45.9 % (42.0-75.0); Hemoglobin 7.6 g/dL (14.0-18.0); Mean Corpuscular HGB CONC 32.1 g/dL (32.0-36.0); Mean Corpuscular Volume 99.6 fl (78.0-98.0); Mean Platelet Volume 6.2 fL (7.4-10.4); Platelet Count 576 10x3/uL (130-400); RBC Distribution Width 15.1 % (11.5-14.5); Red Blood Cell (RBC) Count 2.39 mill/uL (4.70-6.10); White Blood Cell (WBC) Count 8.1 10x3/uL (4.8-10.8)
[2023-01-06 12:58] LABS: ALT (SGPT) 27 U/L (8-55); AST (SGOT) 22 U/L (5-34); Albumin 2.6 g/dL (3.4-4.8); Alkaline Phosphatase 120 U/L (40-110); Anion Gap 13 mmol/L (10-20); BUN (Urea Nitrogen) 23 mg/dL (8.4-25.7); Bilirubin, Total 0.3 mg/dL (0.2-1.2); Calc. Creatinine Clearance 0 mL/min (70-130); Calcium 9.4 mg/dL (7.8-10.44); Carbon Dioxide 24 mmol/L (23-31); Chloride 102 mmol/L (98-107); Estimated GFR 86; Globulin 4.4 g/dL (2.4-3.5); Glucose 139 mg/dL (80-115); Sodium 134 mmol/L (136-145)
== END 2023-01-06 14:55 ==
LOC: ERS 11:12
DX: D64.9 Anemia, unspecified (principal); I10 Essential (primary) hypertension; E78.5 Hyperlipidemia, unspecified; E11.9 Type 2 diabetes mellitus without complications; Z79.899 Other long term (current) drug therapy; Z87.891 Personal history of nicotine dependence
CPT/HCPCS: 36415; 80053; 85025; 86850; 86900; 86901; 99284